=== PATIENT | female | born 1995 | race Caucasian/White ===

== ENCOUNTER → 2021-09-24 15:37 | Outpatient (CLI) | payer OTHER, SELFPAY ==
--- NOTE | 2021-09-24 15:39 | DI.US.S_ITS ---
PROCEDURE: US OB <= 14 WEEKS FETUS INDICATIONS: dating and viability OUTSIDE/PRIOR DATING DATA: Last menstrual period (LMP): 07/28/21 LMP-based estimated date of delivery (CARMENCITA): 05/04/22 First dating scan (date and location): 09/24/21 Estimated date of delivery (CARMENCITA) from first dating scan: 04/27/22 TECHNIQUE: Real-time scanning was performed of the fetus and maternal pelvic organs, with image documentation. COMPARISON: None. FINDINGS: Embryo: Intrauterine is present Heart rate: 169 beats per minute CRL 2.5cm MGSD 4.8cm Maternal organs: Ovaries within normal limits. IMPRESSION: Intrauterine at 9 weeks and 2 days by crown-rump length, within concordance limits to reported LMP. We strive to produce accurate, complete, and clear reports of imaging services. To assist us in improving patient care, this report was composed using standard report templates and voice recognition software. Therefore, it may contain abnormal punctuation, insertions and/or omissions. Occasional wrong-word or sound-alike substitutions may occur. Though we review the report and make efforts to correct it, we do recommend that the report be read carefully in proper context to recognize any text inaccuracies. Dictated by: Jonn Bailey M.D. on 09/25/2021 at 6:49 Approved by: Jonn Bailey M.D. on 09/25/2021 at 6:54
== END ==
PROVIDERS: Referring Provider Obstetrics & Gynecology; Visit Provider Obstetrics & Gynecology
DX: Z34.91 Encounter for supervision of normal pregnancy, unspecified, first trimester (principal); Z3A.09 9 weeks gestation of pregnancy
CPT/HCPCS: 76801

== ENCOUNTER → 2021-10-09 11:05 | Outpatient (CLI) | payer OTHER, SELFPAY ==
[2021-10-09 12:18] LABS: Appearance Urine UA CLEAR; Bilirubin Urine UA NEGATIVE (NEGATIVE); Color Urine UA YELLOW; Glucose Urine UA NEGATIVE (Negative); Ketones Urine UA NEGATIVE (NEGATIVE); Leukocyte Esterase Urine UA NEGATIVE (NEGATIVE); Nitrite Urine UA NEGATIVE (Negative); Occult Blood Urine UA 3+ (Negative); Protein Urine UA TRACE (Negative); Specific Gravity Urine UA 1.025 (1.000-1.035); Urobilinogen Urine UA 0.2 E.U./dL (0.2)
[2021-10-09 12:19] LABS: Add Manual Diff / Slide Review NO; Basophils Absolute Auto 0 /uL (0-100); Basophils Percent Auto 0.4 % (0-2); Eosinophils Absolute Auto 100 /uL (0-450); Eosinophils Percent Auto 1.1 % (2-4); Hematocrit 34.7 % (36-46); Hemoglobin 11.7 g/dL (12.0-16.0); Lymphocytes Absolute Auto 1700 /uL (1100-4500); Lymphocytes Percent Auto 24.4 % (25-40); Mean Corpuscular HGB Conc 33.7 % (30-36); Mean Corpuscular Hemoglobin 30.6 PG (26-34); Mean Corpuscular Volume 90.7 fL (80-100); Monocytes Absolute Auto 500 /uL (0-900); Monocytes Percent Auto 7.5 % (3-14); Neutrophils Absolute Auto 4700 /uL (1500-7000); Neutrophils Percent Auto 66.6 % (50-75); Platelet Count 210 X10^3/uL (150-400); Red Blood Cell Count 3.83 X10^6/uL (4.0-5.2); Red Cell Distribution Width 13.1 % (11.6-14.8); White Blood Cell Count 7.1 X10^3/uL (4.5-11.0)
[2021-10-09 12:30] LABS: Amorphous Sediment Urine 1+; Bacteria Urine None Seen; RBC Urine 10-30/HPF (0-5/HPF); WBC Urine None Seen (0-5/HPF)
[2021-10-10 05:20] LABS: RPR Screen Non Reactive (Non Reactive)
[2021-10-10 07:39] LABS: Varicella IgG Antibody <135 index (Immune >165)
[2021-10-10 19:32] LABS: Hepatitis B Surface Antigen NEGATIVE s/c (NEGATIVE); Rubella Antibody IgG 39.5 IU/mL (>15)
[2021-10-10 20:04] LABS: HIV 1 & 2 Ab/Ag 4th Gen Combo NEGATIVE (NEGATIVE); Hep C Virus Ab w/Reflex Quant NEGATIVE s/c (NEGATIVE)
== END ==
PROVIDERS: PCP Physician Assistant; Referring Provider Obstetrics & Gynecology; Visit Provider Obstetrics & Gynecology
DX: Z34.81 Encounter for supervision of other normal pregnancy, first trimester (principal)
CPT/HCPCS: 36415; 80055; 81003; 81015; 86787; 86803; 86850; 86900; 86901; 87086; 87389

== ENCOUNTER → 2021-11-13 13:45 | Outpatient (CLI) | payer OTHER, SELFPAY ==
[2021-11-16 21:58] LABS: AFP, Serum 33.8 ng/mL (.); Estriol, Free 0.84 ng/mL (.); Inhibin A, Dimeric 253.96 pg/mL (.); Inhibin A, MoM 1.58 (.); Maternal Ethnicity Caucasian (.); Maternal Weight 143 lbs (.); Number of Fetuses No (.); OSBR Risk 1 IN 10000 (.); Results Report (.); Test Results *Screen Negative* (.); hCG, MoM 1.66 (.); hCG, Serum 64845 mIU/mL (.)
== END ==
PROVIDERS: Referring Provider Obstetrics & Gynecology; Visit Provider Obstetrics & Gynecology
DX: Z34.02 Encounter for supervision of normal first pregnancy, second trimester (principal); Z3A.16 16 weeks gestation of pregnancy
CPT/HCPCS: 36415; 82105; 82677; 84702; 86336

== ENCOUNTER → 2021-12-10 12:08 | Outpatient (CLI) | payer OTHER, SELFPAY ==
--- NOTE | 2021-12-10 12:10 | DI.US.S_ITS ---
PROCEDURE: US OB >= 14 WEEKS FETUS INDICATIONS: 20 week anatomy scan OUTSIDE/PRIOR DATING DATA: Last menstrual period (LMP): July 28, 2021. LMP-based estimated date of delivery (CARMENCITA): May 04, 2022. First dating scan (date and location): September 24, 2021, [facility]. Estimated date of delivery (CARMENCITA) from first dating scan: April 27, 2022. TECHNIQUE: Real-time scanning was performed of the fetus, with image documentation and biometric measurements. COMPARISON: None. FINDINGS: General: A single living intrauterine gestation is present. Presentation: Variable. Placenta: Placental position is posterior , without previa. Amniotic fluid index: 8.5 cm, normal range is 5-24 cm. Single deepest vertical pocket is 3.2 cm. heart rate: 155 beats per minute. Maternal cervical canal: 3.6 cm long. Normal lower limit is 2.5 cm. biometrics: Biparietal diameter: 4.5 cm, 19 weeks, 3 days Head circumference: 16.8 cm, 19 weeks, 3 days Abdominal circumference: 15.6 cm, 20 weeks, 6 days Femur length: 3.1 cm, 19 weeks, 4 days Clinically estimated gestational age: 20 weeks, 2 days Composite gestational age from present scan: 19 weeks, 6 days Estimated weight and percentile: 333 g, 36% Anatomic survey: Neuro: Ventricles are non-dilated at less than 10 mm. Cisterna magna is normal at 3-11 mm. Cerebellum is normal in size and morphology. Nuchal skin fold: Normal at less than 6 mm between 14-21 weeks gestational age. Face: Nose and lips, facial profile are normal. Spine: Suboptimally visualized Heart: 4-chambered heart is present, with normal ventricular outflow tracts. Diaphragm: Diaphragm is intact. Stomach: Left-sided stomach is present. Kidneys: Suboptimally visualized Cord: Suboptimally visualized Bladder: Normal in size. Extremities: All 4 extremities identified. IMPRESSION: 1. Single live intrauterine gestation with a composite gestational age of 19 weeks, 6 days. The spine, kidneys, and cord insertion were suboptimally visualized given positioning. Short interval repeat study recommended. 2. No other sonographic anatomic abnormalities. Dictated by: Brittani Rogel M.D. on 12/10/2021 at 18:11 Approved by: Brittani Rogel M.D. on 12/10/2021 at 18:15
== END ==
PROVIDERS: Referring Provider Obstetrics & Gynecology; Visit Provider Obstetrics & Gynecology
DX: Z34.82 Encounter for supervision of other normal pregnancy, second trimester (principal); Z3A.19 19 weeks gestation of pregnancy
CPT/HCPCS: 76811

== ENCOUNTER → 2021-12-11 13:14 | Outpatient (CLI) | payer OTHER, SELFPAY ==
[2021-12-11 19:57] LABS: Urine N gonorrhoeae NOT DETECTED
[2021-12-11 20:47] LABS: Urine Chlamydia NOT DETECTED
== END ==
PROVIDERS: Visit Provider Obstetrics & Gynecology
DX: Z34.82 Encounter for supervision of other normal pregnancy, second trimester (principal); Z3A.23 23 weeks gestation of pregnancy
CPT/HCPCS: 87491; 87591

== ENCOUNTER → 2022-01-22 12:59 | Outpatient (CLI) | payer OTHER, SELFPAY ==
[2022-01-22 14:13] LABS: Hematocrit 31.4 % (36-46); Hemoglobin 10.9 g/dL (12.0-16.0)
[2022-01-22 14:22] LABS: GTT (PREG) 1 Hour PP 50gm Dose 92 mg/dL (76-139)
== END ==
PROVIDERS: Referring Provider Obstetrics & Gynecology; Visit Provider Obstetrics & Gynecology
DX: Z34.82 Encounter for supervision of other normal pregnancy, second trimester (principal); Z3A.26 26 weeks gestation of pregnancy
CPT/HCPCS: 36415; 82950; 85014; 85018

== ENCOUNTER → 2022-01-28 10:02 | Outpatient (CLI) | payer OTHER, SELFPAY ==
--- NOTE | 2022-01-28 10:03 | DI.US.S_ITS ---
PROCEDURE: US OB FOLLOW UP INDICATIONS: Incomplete anatomy survey on 20 wk anatomy scan OUTSIDE/PRIOR DATING DATA: Last menstrual period (LMP): 07/28/2021 LMP-based estimated date of delivery (CARMENCITA): 05/04/2022 First dating scan (date and location): 09/24/2021 Estimated date of delivery (CARMENCITA) from first dating scan: 04/27/2022 TECHNIQUE: Real-time scanning was performed of the fetus, with image documentation. Endovaginal scanning: Not performed COMPARISON: [facility], OB >= 14 WEEKS FETUS, 12/10/2021, 12:43. [facility], , OB <= 14 WEEKS FETUS, 09/24/2021, 17:09. FINDINGS: General: A single living intrauterine gestation is present. Presentation: Vertex Placenta: Placental position is posterior, without previa. Amniotic fluid index: 10.6 cm, normal range is 5-24 cm. Single deepest vertical pocket is 3.5 cm. heart rate: 126 beats per minute. Maternal cervical canal: 3.1 cm long. Normal lower limit is 2.5 cm. Clinically estimated gestational age: 26 weeks 2 days Other: Placental cord insertion appears normal. kidneys are within normal limits without pelviectasis. Lumbar spine and sacrum are within normal limits. Cervical and thoracic spine and the cord insertion not well evaluated due to positioning. IMPRESSION: 1. Single live intrauterine . 2. kidneys, lumbar and sacral spine, and placental cord insertion are within normal limits. 3. cord insertion and the cervical and thoracic spine are not well visualized due to positioning. We strive to produce accurate, complete, and clear reports of imaging services. To assist us in improving patient care, this report was composed using standard report templates and voice recognition software. Therefore, it may contain abnormal punctuation, insertions and/or omissions. Occasional wrong-word or sound-alike substitutions may occur. Though we review the report and make efforts to correct it, we do recommend that the report be read carefully in proper context to recognize any text inaccuracies. Approved by: Mario Ralph M.D. on 01/28/2022 at 16:56
== END ==
PROVIDERS: Referring Provider Obstetrics & Gynecology; Visit Provider Obstetrics & Gynecology
DX: Z36.2 Encounter for other antenatal screening follow-up (principal); Z3A.24 24 weeks gestation of pregnancy
CPT/HCPCS: 76816

== ENCOUNTER 2022-01-31 13:19 | Observation (INO) | payer OTHER, SELFPAY ==
[2022-01-31 14:47] LABS: Appearance Urine UA CLEAR; Bilirubin Urine UA NEGATIVE (NEGATIVE); Color Urine UA YELLOW; Glucose Urine UA NEGATIVE (Negative); Ketones Urine UA NEGATIVE (NEGATIVE); Leukocyte Esterase Urine UA NEGATIVE (NEGATIVE); Nitrite Urine UA NEGATIVE (Negative); Occult Blood Urine UA NEGATIVE (Negative); Protein Urine UA NEGATIVE (Negative); Urobilinogen Urine UA 0.2 E.U./dL (0.2)
[2022-01-31 14:51] LABS: pH Urine UA 6.5 (4.5-8.0)
[2022-01-31 14:56] LABS: Bacteria Urine Occasional (0-1); RBC Urine None Seen (0-5/HPF); Squamous Epithelial Cell Urine 0-1 /HPF (0-5/HPF); WBC Urine 0-1/HPF (0-5/HPF)
--- NOTE | 2022-01-31 15:47 | PM.OBTRLD ---
Visit Information Visit Information Date of evaluation: 01/31/22 Primary OB Provider: Gorge Lane Reason for Evaluation: Yes other Comments/Additional reasons for admission: 26 yo at 27+5 weeks EGA presenting with progressively severe R flank pain since her follow-up anatomy scan performed 01.28.2022. She denies contractions, bleeding, leakage of fluid PV, or change in discharge. Hurts worse with deep breath but no SOB, CHAN. Baby active. PFSH Medical History Anxiety Depression Surgical History H/O dilation and curettage Family History Mother Hypertension Gestational diabetes Father Hypertension Grandfather Colon cancer Social History marital status: number of children: 0 household members: spouse housing: [facility] pets and animals: Yes education level: high school occupational status: previously employed current occupational exposures/hazards: No special trino needs: No seatbelt use: always water heater temp set < 120 deg: No (will adjust) working smoke detector in home: Yes fire extinguisher in home: Yes carbon monox detector in home: Yes firearms in home: Yes firearms unloaded and locked: Yes do you feel safe at home: Yes Smoking Status: Former smoker (Quit when she realized she was ) Tobacco: How many years used: 4 second hand exposure: No substance use type: marijuana (not willing to stop due to appetite, sleep, depression, etc) during the past year weight has: remained stable well-balanced diet: rarely or never daily servings fruits/ve-1 caffeine: No Type(s) of exercise: walking frequency: daily duration: 15-30 minutes/day additional social history: Very inadequate diet. Reports that she eats absolutely no fruits or vegetables, won't even try or drink smoothies. I eat noodles, potatoes, and meat. I'll take a supplement if you tell me one. Counseled pt on diet, but it seems likely this will need a lot of reinforcement. Exam HENNV Head: normal to inspection, normocephalic and atraumatic Eyes General: appearance normal, both eyes and all related structures Resp Effort & Inspection: normal respiratory effort and able to speak in complete sentences Cardio Rate: regular rate Rhythm: regular rhythm GI Inspection: normal to inspection Palpation: soft and no hepatosplenomegaly Other: Tenderness R ribs 8-10, duplicates her pain Uterus Location (Fundal Height): 27 Estimated Weight (lbs): 3 Back/Spine/Pelvis Thoracic/Lumbar Spine: other Extrem Right lower extremity: normal to inspection Objective Labs Labs: Laboratory Results - last 24 hr 01/31/22 13:59 Urine Color Yellow Urine Appearance Clear Urine pH 6.5 Ur Specific [place] 1.010 Urine Protein Negative Urine Glucose (UA) Negative Urine Ketones Negative Urine Occult Blood Negative Urine Nitrate Negative Urine Bilirubin Negative Urine Urobilinogen 0.2 Ur Leukocyte Esterase Negative Urine RBC None seen Urine WBC 0-1/hpf Ur Squamous Epith Cells 0-1 /hpf Urine Bacteria Occasional (0-1) Evaluation Evaluation Baseline heart rate: 150 Variability: Moderate (11-25) monitor accelerations: Present Monitor Decelerations: Absent Status: Category l Diagnosis, Plan/Disposition Final Diagnosis (1) Slipped rib syndrome: Status: Acute (2) : Status: Acute Plan/Disposition Plan: PO analgesics, ice packs, avoid provocative activities/postures. UA negative in all respects. Follow-up as scheduled. OB Disposition: home
== END 2022-01-31 15:35 | disposition home or self-care (01) ==
PROVIDERS: Admitting Provider Obstetrics & Gynecology; Referring Provider Obstetrics & Gynecology; Visit Provider Obstetrics & Gynecology
DX: O26.892 Other specified pregnancy related conditions, second trimester (principal); M89.8X8 Other specified disorders of bone, other site; Z3A.27 27 weeks gestation of pregnancy
CPT/HCPCS: 59025; 59050; 81001; 87086; G0378; G0379

== ENCOUNTER → 2022-02-28 14:03 | Outpatient (CLI) | payer OTHER, SELFPAY ==
--- NOTE | 2022-02-28 14:04 | DI.US.S_ITS ---
PROCEDURE: US OB FOLLOW UP INDICATIONS: FOLLOW UP ANATOMY OUTSIDE/PRIOR DATING DATA: Last menstrual period (LMP): 07/28/2021. LMP-based estimated date of delivery (CARMENCITA): 05/04/2022. First dating scan (date and location): 09/14/2021. Estimated date of delivery (CARMENCITA) from first dating scan: 04/27/2022. TECHNIQUE: Real-time scanning was performed of the fetus, with image documentation. COMPARISON: , , OB FOLLOW UP, 01/28/2022, 10:15. FINDINGS: A single living intrauterine gestation is present. Presentation: Vertex Placenta: Posterior left, no previa Amniotic fluid index: 6 cm. heart rate: 126 beats per minute Maternal cervical canal: 5 cm Cervical spine appears within normal limits. Sacral spine appears within normal limits. The thoracic spine is grossly normal, but skin line is not well seen. cord insertion is grossly normal, but the surrounding structures around the cord insertion are not well seen. Mobile debris is seen in the distended maternal urinary bladder. IMPRESSION: Living intrauterine is present. Cervical and sacral spine are within normal limits. Thoracic spine is grossly normal, but the skin line is not well seen. The structures surrounding the cord insertion are also not well seen. These are due to late gestational age. MALIA 6 cm, at the lower limit of normal. Maternal distended urinary bladder with debris, correlate with urinalysis if necessary. Consider continued imaging follow-up if necessary. Dictated by: Jonn Bailey M.D. on 02/28/2022 at 16:32 Approved by: Jonn Bailey M.D. on 02/28/2022 at 16:38
== END ==
PROVIDERS: Referring Provider Obstetrics & Gynecology; Visit Provider Obstetrics & Gynecology
DX: Z36.2 Encounter for other antenatal screening follow-up (principal)
CPT/HCPCS: 76816

== ENCOUNTER → 2022-03-27 16:37 | Outpatient (CLI) | payer OTHER, SELFPAY ==
--- NOTE | 2022-03-27 16:37 | DI.US.S_ITS ---
PROCEDURE: US OB FOLLOW UP INDICATIONS: borderline oligohydramnios f/u OUTSIDE/PRIOR DATING DATA: Last menstrual period (LMP): 07/28/2021. LMP-based estimated date of delivery (CARMENCITA): 05/04/2022. First dating scan (date and location): 09/24/2021. Estimated date of delivery (CARMENCITA) from first dating scan: 04/27/2022. The calculations are made using the clinical CARMENCITA of 05/04/2022. TECHNIQUE: Real-time scanning was performed of the fetus, with image documentation. COMPARISON: [facility], , OB FOLLOW UP, 02/28/2022, 14:25. FINDINGS: General: A single living intrauterine gestation is present. Presentation: Vertex. Placenta: Placental position is posterior left, without previa. Amniotic fluid index: 7.3 cm, normal range is 5-24 cm. Single deepest vertical pocket is 4.6 cm. heart rate: 165 beats per minute. Maternal cervical canal: 3.8 cm long. Normal lower limit is 2.5 cm. Clinically estimated gestational age: 34 weeks 4 days No gross abnormality seen. IMPRESSION: 1. [place] living intrauterine at 34 weeks 4 days based on prior dating. Vertex position. 2. Normal placenta and amniotic fluid. MALIA 7.3 cm. We strive to produce accurate, complete, and clear reports of imaging services. To assist us in improving patient care, this report was composed using standard report templates and voice recognition software. Therefore, it may contain abnormal punctuation, insertions and/or omissions. Occasional wrong-word or sound-alike substitutions may occur. Though we review the report and make efforts to correct it, we do recommend that the report be read carefully in proper context to recognize any text inaccuracies. Dictated by: Ren Wilhelm M.D. on 03/28/2022 at 9:15 Approved by: Ren Wilhelm M.D. on 03/28/2022 at 9:20
== END ==
PROVIDERS: Referring Provider Obstetrics & Gynecology; Visit Provider Obstetrics & Gynecology
DX: O41.03X0 Oligohydramnios, third trimester, not applicable or unspecified; Z3A.34 34 weeks gestation of pregnancy
CPT/HCPCS: 76816

== ENCOUNTER → 2022-04-03 13:34 | Outpatient (CLI) | payer OTHER, SELFPAY ==
[2022-04-04 14:42] LABS: Strep Grp B PCR NEG for Grp B Strep
== END ==
PROVIDERS: Visit Provider Obstetrics & Gynecology
DX: Z36.85 Encounter for antenatal screening for Streptococcus B (principal)
CPT/HCPCS: 87653

== ENCOUNTER → 2022-04-09 13:48 | Outpatient (CLI) | payer OTHER, SELFPAY ==
[2022-04-09 15:42] LABS: Creatinine Urine Random 25.6 mg/dL; Protein (Total) Urine Random 13 mg/dL (0-12)
== END ==
PROVIDERS: Visit Provider Obstetrics & Gynecology
DX: R03.0 Elevated blood-pressure reading, without diagnosis of hypertension (principal)
CPT/HCPCS: 82570; 84156

== ENCOUNTER → 2022-04-09 13:53 | Outpatient (CLI) | payer OTHER, SELFPAY ==
[2022-04-09 14:12] LABS: Add Manual Diff / Slide Review NO; Basophils Absolute Auto 100 /uL (0-100); Basophils Percent Auto 1.3 % (0-2); Eosinophils Absolute Auto 100 /uL (0-450); Eosinophils Percent Auto 0.9 % (2-4); Hematocrit 37.3 % (36-46); Hemoglobin 12.7 g/dL (12.0-16.0); Lymphocytes Absolute Auto 2000 /uL (1100-4500); Lymphocytes Percent Auto 21.3 % (25-40); Mean Corpuscular HGB Conc 34.2 % (30-36); Mean Corpuscular Hemoglobin 32.1 PG (26-34); Mean Corpuscular Volume 93.8 fL (80-100); Monocytes Absolute Auto 800 /uL (0-900); Monocytes Percent Auto 8.4 % (3-14); Neutrophils Absolute Auto 6400 /uL (1500-7000); Neutrophils Percent Auto 68.1 % (50-75); Platelet Count 214 X10^3/uL (150-400); Red Blood Cell Count 3.97 X10^6/uL (4.0-5.2); Red Cell Distribution Width 12.7 % (11.6-14.8); White Blood Cell Count 9.4 X10^3/uL (4.5-11.0)
[2022-04-09 14:22] LABS: Alanine Aminotransferase 14 IU/L (<35); Albumin 3.8 g/dL (3.5-5.0); Albumin Globulin Ratio 1.1 (1.0-2.8); Alkaline Phosphatase 122 U/L (38-126); Aspartate Aminotransferase 19 IU/L (14-36); Bilirubin Total 0.5 mg/dL (0.2-1.3); Blood Urea Nitrogen 9 mg/dL (7-17); Calcium 9.6 mg/dL (8.4-10.2); Carbon Dioxide 23 mmol/L (22-32); Chloride 105 mmol/L (98-107); Estimated Glomerular Filt Rate > 60 mL/min (>60); Globulin 3.5 g/dL (1.7-4.1); Glucose 81 mg/dL (70-100); HEMOLYSIS < 15 (0-50); Potassium 4.5 mmol/L (3.4-5.1); Sodium 134 mmol/L (137-145); Total Protein 7.3 g/dL (6.3-8.2)
[2022-04-09 16:55] LABS: Uric Acid 3.8 mg/dL (2.5-6.2)
== END ==
PROVIDERS: Referring Provider Obstetrics & Gynecology; Visit Provider Obstetrics & Gynecology
DX: R03.0 Elevated blood-pressure reading, without diagnosis of hypertension (principal)
CPT/HCPCS: 36415; 80053; 84550; 85025

== ENCOUNTER 2022-04-09 14:02 | Observation (INO) | payer OTHER, SELFPAY ==
--- NOTE | 2022-04-09 16:22 | PM.OBTRLD ---
Visit Information Visit Information Date of evaluation: 04/09/22 Primary OB Provider: Gorge Lane Reason for Evaluation: Yes non-stress test Comments/Additional reasons for admission: Gloria presents for BP monitoring and NST due to BP elevation in-office today. [facility] Medical History Anxiety Depression Surgical History H/O dilation and curettage Family History Mother Hypertension Gestational diabetes Father Hypertension Grandfather Colon cancer Social History marital status: number of children: 0 household members: spouse housing: [facility] pets and animals: Yes education level: high school occupational status: previously employed current occupational exposures/hazards: No special trino needs: No seatbelt use: always water heater temp set < 120 deg: No (will adjust) working smoke detector in home: Yes fire extinguisher in home: Yes carbon monox detector in home: Yes firearms in home: Yes firearms unloaded and locked: Yes do you feel safe at home: Yes Smoking Status: Former smoker (Quit when she realized she was ) Tobacco: How many years used: 4 second hand exposure: No substance use type: marijuana (not willing to stop due to appetite, sleep, depression, etc) during the past year weight has: remained stable well-balanced diet: rarely or never daily servings fruits/ve-1 caffeine: No Type(s) of exercise: walking frequency: daily duration: 15-30 minutes/day additional social history: Very inadequate diet. Reports that she eats absolutely no fruits or vegetables, won't even try or drink smoothies. I eat noodles, potatoes, and meat. I'll take a supplement if you tell me one. Counseled pt on diet, but it seems likely this will need a lot of reinforcement.
[2022-04-09 16:32] VITALS: BP 140/90; PULSE 82
[2022-04-09] MEDS: LABETALOL 100 MG TABLET 200 MG PO (16:32)
== END 2022-04-09 16:33 | disposition home or self-care (01) ==
PROVIDERS: Admitting Provider Obstetrics & Gynecology; Referring Provider Obstetrics & Gynecology; Visit Provider Obstetrics & Gynecology
DX: O16.3 Unspecified maternal hypertension, third trimester (principal); Z3A.37 37 weeks gestation of pregnancy; R03.0 Elevated blood-pressure reading, without diagnosis of hypertension
CPT/HCPCS: 36415; 59025; 59050; 80053; 82570; 84156; 84550; 85025; G0378; G0379

== ENCOUNTER 2022-04-10 21:43 | Outpatient (CLI) | payer OTHER, SELFPAY | END 2022-04-10 22:37 | disposition home or self-care (01) | LOC: LABOR 21:48 → OB 04-18 17:06 | PROVIDERS: Referring Provider Obstetrics & Gynecology; Visit Provider Obstetrics & Gynecology | DX: Z03.71 Encounter for suspected problem with amniotic cavity and membrane ruled out (principal); O13.3 Gestational [pregnancy-induced] hypertension without significant proteinuria, third trimester; Z3A.37 37 weeks gestation of pregnancy | CPT/HCPCS: 59025; 84112; G0378; G0379 ==

== ENCOUNTER 2022-04-16 19:12 | Inpatient (IN) | payer OTHER, SELFPAY ==
[2022-04-16 19:45] VITALS: BP 134/78
[2022-04-16 20:17] LABS: Add Manual Diff / Slide Review NO; Basophils Absolute Auto 100 /uL (0-100); Basophils Percent Auto 1.2 % (0-2); Eosinophils Absolute Auto 100 /uL (0-450); Eosinophils Percent Auto 0.8 % (2-4); Hematocrit 36.6 % (36-46); Hemoglobin 12.1 g/dL (12.0-16.0); Lymphocytes Absolute Auto 2100 /uL (1100-4500); Lymphocytes Percent Auto 18.6 % (25-40); Mean Corpuscular HGB Conc 33.2 % (30-36); Mean Corpuscular Hemoglobin 31.8 PG (26-34); Mean Corpuscular Volume 95.9 fL (80-100); Monocytes Absolute Auto 800 /uL (0-900); Neutrophils Absolute Auto 8100 /uL (1500-7000); Neutrophils Percent Auto 72.4 % (50-75); Platelet Count 238 X10^3/uL (150-400); Red Blood Cell Count 3.81 X10^6/uL (4.0-5.2); Red Cell Distribution Width 13.3 % (11.6-14.8); White Blood Cell Count 11.2 X10^3/uL (4.5-11.0)
[2022-04-16] MEDS: miSOPROStoL 100 MCG TABLET 50 MCG PO (20:36)
[2022-04-16 21:25] LABS: Alanine Aminotransferase 17 IU/L (<35); Albumin 3.3 g/dL (3.5-5.0); Alkaline Phosphatase 123 U/L (38-126); Aspartate Aminotransferase 21 IU/L (14-36); BUN Creatinine Ratio 17.2 (6-22); Bilirubin Total 0.4 mg/dL (0.2-1.3); Blood Urea Nitrogen 11 mg/dL (7-17); Calcium 9.4 mg/dL (8.4-10.2); Carbon Dioxide 23 mmol/L (22-32); Chloride 104 mmol/L (98-107); Estimated Glomerular Filt Rate > 60 mL/min (>60); Globulin 3.2 g/dL (1.7-4.1); Glucose 106 mg/dL (70-100); HEMOLYSIS < 15 (0-50); Potassium 3.6 mmol/L (3.4-5.1); Sodium 135 mmol/L (137-145); Total Protein 6.5 g/dL (6.3-8.2); Uric Acid 4.3 mg/dL (2.5-6.2)
[2022-04-16 21:56] LABS: Creatinine Urine Random 124.5 mg/dL; Protein (Total) Urine Random 12 mg/dL (0-12); Protein Creatinine Ratio Urine 0.09 GRAM/24H
[2022-04-16] MEDS: LABETALOL 100 MG TABLET 200 MG PO (23:34)
[2022-04-17] MEDS: miSOPROStoL 100 MCG TABLET 50 MCG PO (02:39)
--- NOTE | 2022-04-17 07:37 | PM.OBHP.1 ---
OB HPI Date/Time Date of admission: 04/16/22 Date Patient Seen: 04/17/22 Time Patient Seen: 07:37 History of Present Condition Chief complaint: IUP, 38+4 wks EGA, gestational hypertension : 2 Para: 0 Estimated Date of Delivery: 04/27/22 Estimated Gestational Age (weeks): 38+3 Narrative: Gloria Seay is a 26 year old admitted at 38+3 weeks EGA for ripening/induction due to gestational HTN requiring labetalol 200 mg PO BID for BP control. PIH/PEC labs have been negative aside from elevated protein to creatinine ratios but dip urinalysis is negative for protein. course is largely been uneventful with solid dating and appropriate milestones throughout. GBS is negative. Indications Indication for induction OB: gestational HTN/pre-eclampsia History of Present care: good care Dating criteria: LMP confirmed by 1st trimester US Ultrasounds: normal 1st trimester US and normal mid trimester US Obstetrical complications: gestational hypertension Medical complications: none Preadmission Labs Blood type: A (+) positive -: Antibody screen: negative, GBS status: negative, HBsAG: negative, HIV: negative and RPR/VDLR: negative -: Chlamydia screen: not detected and Gonorrhea screen: not detected -: Rubella: immune and Varicella: not immune HCT: 37.3 HCAB: negative PAP: Normal Quad screen: Normal 1 hr GTT: 92 Prior (ies) History: SAB x 1 Evaluation Evaluation Baseline heart rate: 135 Variability: Moderate (11-25) monitor accelerations: Present Monitor Decelerations: Absent Contraction Frequency (minutes): 6 Uterine Contraction Intensity: Moderate Category of Tracing: Reactive Status: Category l Dilation (cm): 1 Effacement (%): 85 Dilation: Closed Effacement: >/=80% station: -1 Position of cervix: mid Consistency: soft Ferguson score: 8 PFSH Medical History Anxiety Depression Surgical History H/O dilation and curettage Family History Mother Hypertension Gestational diabetes Father Hypertension Grandfather Colon cancer Social History marital status: number of children: 0 household members: spouse housing: [facility] pets and animals: Yes education level: high school occupational status: previously employed current occupational exposures/hazards: No special trino needs: No seatbelt use: always water heater temp set < 120 deg: No (will adjust) working smoke detector in home: Yes fire extinguisher in home: Yes carbon monox detector in home: Yes firearms in home: Yes firearms unloaded and locked: Yes do you feel safe at home: Yes Smoking Status: Former smoker Tobacco: How many years used: 4 second hand exposure: No substance use type: marijuana (not willing to stop due to appetite, sleep, depression, etc) during the past year weight has: remained stable well-balanced diet: rarely or never daily servings fruits/ve-1 caffeine: No Type(s) of exercise: walking frequency: daily duration: 15-30 minutes/day additional social history: Very inadequate diet. Reports that she eats absolutely no fruits or vegetables, won't even try or drink smoothies. I eat noodles, potatoes, and meat. I'll take a supplement if you tell me one. Counseled pt on diet, but it seems likely this will need a lot of reinforcement. Meds Home Medications and Allergies Home Medications Medication Instructions Recorded Confirmed Type doxylamine succinate 25 mg tablet 25 mg PO BEDTIME PRN insomia 09/26/21 04/16/22 History prenat.vits,tameka,clh-osfa-czhmo 1 tab PO DAILY 09/26/21 04/16/22 History buspirone 15 mg tablet 15 mg PO BID #60 tabs 10/09/21 04/16/22 Rx double electric breast pump 1 ea topical .prn #1 ea 03/21/22 04/16/22 Rx labetalol 200 mg tablet See Rx Instructions .Route 04/09/22 04/16/22 Rx .COMPLEX #180 tabs Allergies Allergy/AdvReac Type Severity Reaction Status Date / Time latex Allergy Verified 04/16/22 19:49 Review of Systems Review of Systems Narrative: Problem-specific ROS positives included in HPI OB Exam Vital signs Blood Pressure: 126/70 Pulse Rate: 69 Respiratory Rate: 16 Temperature: 95.7 F HENMT Head: normal to inspection, normocephalic and atraumatic Eyes General: appearance normal, both eyes and all related structures Resp Effort & Inspection: normal respiratory effort and able to speak in complete sentences Auscultation: clear to auscultation bilaterally Cardio Rate: regular rate Rhythm: regular rhythm Heart Sounds: S1 normal, S2 normal and no murmurs Extremities Lower extremity: Yes normal to inspection GI Inspection: normal to inspection Palpation: Yes soft and Yes no hepatosplenomegaly Uterus Location (Fundal Height): 38 Presentation: vertex Estimated Weight (lbs): 8 Objective Labs 04/16/22 20:00 04/16/22 20:30 Labs: Laboratory Results - last 24 hr 04/16/22 04/16/22 04/16/22 20:00 20:00 20:30 WBC 11.2 H RBC 3.81 L Hgb 12.1 Hct 36.6 MCV 95.9 MCH 31.8 MCHC 33.2 RDW 13.3 Plt Count 238 Neut % (Auto) 72.4 Lymph % (Auto) 18.6 L Price % (Auto) 7.0 Eos % (Auto) 0.8 L Baso % (Auto) 1.2 Neut # (Auto) 8100 H Lymph # (Auto) 2100 Price # (Auto) 800 Eos # (Auto) 100 Baso # (Auto) 100 Sodium 135 L Potassium 3.6 Chloride 104 Carbon Dioxide 23 BUN 11 Creatinine 0.64 Estimated GFR > 60 BUN/Creatinine Ratio 17.2 Glucose 106 H Uric Acid 4.3 Calcium 9.4 Total Bilirubin 0.4 AST 21 ALT 17 Alkaline Phosphatase 123 Total Protein 6.5 Albumin 3.3 L Globulin 3.2 Albumin/Globulin Ratio 1.0 U Random Total Protein Urine Creatinine Protein/Creatinin Ratio Blood Type A Positive Antibody Screen Negative 04/16/22 21:00 WBC RBC Hgb Hct MCV MCH MCHC RDW Plt Count Neut % (Auto) Lymph % (Auto) Price % (Auto) Eos % (Auto) Baso % (Auto) Neut # (Auto) Lymph # (Auto) Price # (Auto) Eos # (Auto) Baso # (Auto) Sodium Potassium Chloride Carbon Dioxide BUN Creatinine Estimated GFR BUN/Creatinine Ratio Glucose Uric Acid Calcium Total Bilirubin AST ALT Alkaline Phosphatase Total Protein Albumin Globulin Albumin/Globulin Ratio U Random Total Protein 12 Urine Creatinine 124.5 Protein/Creatinin Ratio 0.09 Blood Type Antibody Screen Assessment and Plan Assessment and Plan Assessment and Plan narrative: ASSESSMENT 1. Intrauterine , 38+ 3 weeks gestational age 2. Gestational hypertension, treated with oral labetalol 3. GBS negative status PLAN 1. Admit for ripening and induction 2. See admission orders
[2022-04-17 08:29] VITALS: BP 126/70; PULSE 69; RESP 16; TEMP 35.4
[2022-04-17 08:57] VITALS: BP 129/82; PULSE 77
[2022-04-17] MEDS: LABETALOL 100 MG TABLET 200 MG PO ×2 (08:57→23:07)
[2022-04-17] MEDS: LACTATED RINGERS 1,000 ML 100 ML IV ×2 (08:57→18:44)
[2022-04-17] MEDS: OXYTOCIN PREMIX 30 UNIT/500 ML PLAST..BAG IV (09:21)
--- NOTE | 2022-04-17 14:07 | PM.OBPNLAB ---
Date/Time Date Patient Seen: 04/17/22 Time Patient Seen: 12:00 Pain Control Pain control: tolerating well Pelvic Exam Dilation (cm): 1 Effacement (%): 90 station: -2 Amniotic membrane status: Intact Contractions Contractions on admission: none Monitor mode: External Pitocin rate (mU/min): 10 Contraction frequency (min): 3 Contraction duration (min): 1 Contraction pattern: Regular Contraction phase: Resting Contraction intensity: Strong/Firm Status status: Category l Heart Rate Baseline: 145 Monitor Accelerations: Present Monitor Decelerations: Absent Monitor Variability: Moderate Assessment and Plan Assessment: induction ongoing Plan: continuous present management Comments: Little change noted overnight with oral Cytotec. Pitocin augmentation initiated after breakfast currently well tolerated. OK for UMAIR as desired.
[2022-04-17 18:45] VITALS: BP 122/69; PULSE 70
[2022-04-17] MEDS: FENT 2MCG/ML BUPIV 0.125% EPI 200 MCG/100 ML PLAST..BAG 8 MCG EPIDURAL (19:47)
[2022-04-17 23:07] VITALS: BP 125/67; PULSE 82
[2022-04-17 23:46] VITALS: BP 118/68; PULSE 75
[2022-04-18] MEDS: FENT 2MCG/ML BUPIV 0.125% EPI 200 MCG/100 ML PLAST..BAG 8 MCG EPIDURAL (02:31)
[2022-04-18] MEDS: LACTATED RINGERS 1,000 ML 100 ML IV (04:45)
--- NOTE | 2022-04-18 08:46 | PM.OBPRVD ---
Events: Induced HTN Labor & Delivery Delivery date: 04/18/22 Intrapartal Events: None Cervical ripening method: per misoprostal protocol Induction method: per pitocin protocol Delivery augmentation: pitocin Delivery monitor: external FHT and external uterine Route of delivery: Episiotomy description: None L&D Laceration Description: Perineal - 2nd Degree and Labial (2nd degree bilateral) Delivery repair: chromic Estimated blood loss (mL): 250 Anesthesia Type: Epidural Complications: None Narrative: Following a 33 minute 2nd stage, the patient delivered over in intact perineum a vigorous, viable female infant. No shoulder dystocia or cord entanglement was encountered. Skin to skin contact was initiated immediately and delayed cord clamping performed. Once the umbilical cord was doubly clamped and cut, a cord blood sample was obtained for routine studies. The placenta was delivered easily with gentle cord traction and suprapubic countertraction. Placenta was examined, found to be intact with a central cord insertion, and the umbilical cord was noted to have 3 vessels. Intravenous Pitocin was initiated immediately to good effect with prompt decrease in bleeding. Inspection of the perineum showed labial lacerations on both sides and a midline perineal laceration. The labial lacerations were closed with 3-0 chromic using running interlocking stitches and the perineal laceration was closed with 2-0 chromic in the usual manner. Mother and baby tolerated the delivery process well and no complications were experienced. Baby 1: gender: Female Presentation: vertex Position: Right Occiput Anterior Placenta delivery description: Spontaneous Cord Vessel Description: 3 Vessels score (1 min): 9 score (5 min): 9 weight: 6 lb 4.354 oz Plan for aftercare: Routine care
[2022-04-18] MEDS: LABETALOL 100 MG TABLET 200 MG PO ×2 (10:05→21:08)
[2022-04-18] MEDS: ACETAMINOPHEN 325 MG TABLET 650 MG PO ×3 (10:06→22:43)
[2022-04-18] MEDS: IBUPROFEN 600 MG TABLET PO ×3 (10:07→22:44)
[2022-04-18 21:08] VITALS: BP 131/80; PULSE 86
[2022-04-18] MEDS: BUSPIRONE 5 MG TABLET 15 MG PO (21:11)
[2022-04-18] MEDS: OXYCODONE IR 5 MG TABLET PO (22:43)
[2022-04-19] MEDS: OXYCODONE IR 5 MG TABLET PO ×2 (04:58→09:25)
[2022-04-19] MEDS: ACETAMINOPHEN 325 MG TABLET 650 MG PO ×2 (04:58→11:01)
[2022-04-19] MEDS: IBUPROFEN 600 MG TABLET PO ×2 (04:59→11:01)
[2022-04-19 06:13] LABS: Add Manual Diff / Slide Review NO; Basophils Absolute Auto 0 /uL (0-100); Basophils Percent Auto 0.3 % (0-2); Eosinophils Absolute Auto 100 /uL (0-450); Eosinophils Percent Auto 0.5 % (2-4); Hematocrit 29.7 % (36-46); Lymphocytes Absolute Auto 1800 /uL (1100-4500); Lymphocytes Percent Auto 15.2 % (25-40); Mean Corpuscular HGB Conc 33.8 % (30-36); Mean Corpuscular Hemoglobin 32.1 PG (26-34); Mean Corpuscular Volume 94.8 fL (80-100); Monocytes Absolute Auto 900 /uL (0-900); Monocytes Percent Auto 7.8 % (3-14); Neutrophils Absolute Auto 8900 /uL (1500-7000); Neutrophils Percent Auto 76.2 % (50-75); Platelet Count 199 X10^3/uL (150-400); Red Blood Cell Count 3.13 X10^6/uL (4.0-5.2); Red Cell Distribution Width 12.7 % (11.6-14.8); White Blood Cell Count 11.7 X10^3/uL (4.5-11.0)
[2022-04-19 09:25] VITALS: BP 121/77; PULSE 75
[2022-04-19] MEDS: LABETALOL 100 MG TABLET 200 MG PO (09:25)
[2022-04-19 10:45] VITALS: BP 121/77; PULSE 75; RESP 16; TEMP 36.6
--- NOTE | 2022-04-19 10:58 | P.DS_ITS ---
Discharge Providers Provider Date of admission: 04/16/22 19:12 Discharge Date: 04/19/22 Primary care physician: Sarah WALTERS Provider Consults: 04/19/22 08:43 Consult to Hydraulic Repairer Routine Comment: Discharge provider: Gorge Lane MD Summary Hospital Course Date Patient Seen: 04/19/22 Time Patient Seen: 10:59 Diagnoses: Intrauterine gestation, 38+ 5 weeks gestational age, delivered by spontaneous vaginal Gestational hypertension Hospital Course: Gloria was admitted for cervical ripening on the evening of 04/16/2022 with oral Cytotec. On the morning of 04/17/2022, Pitocin induction was initiated and early on the morning of 04/18/2022 delivered spontaneously a viable female with a weight of 2845 g (6 lb 4.4 oz), and Apgars of 9/9. Following delivery both mother and baby have done extremely well with the mother ambulating independently, tolerating a regular diet, and her pain is well relieved with oral pain medications. Patient will be discharged at this time to home after counseling regarding precautionary symptoms, limitations of activity, medications, and plans for follow-up which will be in 6 weeks. Medications at discharge will include resumption of all medications she was taking prior to admission, as well as oxycodone 5 mg p.o. q.6 hours as needed pain, dispense 10, and ibuprofen 600 mg p.o. q.6 hours as needed pain dispense 30. Patient will also continue her labetalol 200 mg p.o. b.i.d. until she is seen back for her 6 week visit. Peripartum Data Infant Delivery Method: Natural Vaginal Laceration Description: Perineal - 2nd Degree and Labial (Bilateral) Episiotomy description: None complications: none [place] 1: Gender: Female Disposition of : home Discharge Diagnosis (1) Gestational hypertension affecting first : Status: Acute (2) Vaginal delivery: Status: Acute Status at Discharge Cognitive/behavioral status at discharge: oriented Functional status at discharge: independent ambulation Overall status at discharge: patient is progressing back to baseline Time Spent with Patient Time attestation: Total time spent providing and/or coordinating discharge services: Time spent: Less than 30 minutes Objective Labs 04/19/22 05:50 04/16/22 20:30 Labs: Laboratory Results - last 24 hr 04/19/22 05:50 WBC 11.7 H RBC 3.13 L Hgb 10.0 L Hct 29.7 L MCV 94.8 MCH 32.1 MCHC 33.8 RDW 12.7 Plt Count 199 Neut % (Auto) 76.2 H Lymph % (Auto) 15.2 L [place] % (Auto) 7.8 Eos % (Auto) 0.5 L Baso % (Auto) 0.3 Neut # (Auto) 8900 H Lymph # (Auto) 1800 [place] # (Auto) 900 Eos # (Auto) 100 Baso # (Auto) 0 Exam Vital Signs (past 8 hours): - 04/19/22 09:25 04/19/22 10:45 Temperature 97.8 F Pulse Rate 75 75 Respiratory Rate 16 Blood Pressure 121/77 121/77 Const General: cooperative and comfortable Nutritional Appearance: average body habitus Orientation: alert and oriented x3 HENMT Head: normal to inspection, atraumatic and abrasion Ears: hearing grossly normal bilaterally Face and sinus: face symmetric Eyes General: appearance normal, both eyes and all related structures Conjunctivae: conjunctivae normal Sclera: sclerae normal EOM: EOM intact bilaterally Neck Neck: normal visual inspection Resp Effort & Inspection: normal respiratory effort and able to speak in complete sentences Auscultation: clear to auscultation bilaterally Cardio Rate: regular rate Rhythm: regular rhythm Heart Sounds: S1 normal, S2 normal and no murmurs GI Inspection: normal to inspection Palpation: soft, no hepatosplenomegaly and mass (Firm, minimally tender fundus, U -4) External Female Exam: other (No significant bleeding noted, perineum intact) Extrem General: no calf tenderness Psych Appearance: grossly normal Mental Status: mental status grossly normal Speech and Movement: speech and movement normal Mood: congruent mood Affect: normal affect Attitude: cooperative Thought Process: normal Thought Content: normal Judgment: judgment good Discharge Plan Discharge Plan Patient Disposition: Home Provider Discharge Comment: Please review the written instructions you received when you were discharged from the hospital. Your follow-up appointment should be scheduled for 6 weeks after delivery and I look forward to seeing you then. If however you have any questions, concerns, or problems in the meanwhile, please contact me either through the office phone at [phone], or via the patient portal. Discharge orders & Medications Prescriptions: New ibuprofen 600 mg Tablet 600 mg PO Q6HR PRN (Reason: Pain, Mild (1-3)) Qty: 30 2RF oxycodone 5 mg Tablet 5 mg PO Q4HR PRN (Reason: Pain, Moderate (4-6)) Qty: 12 0RF Continued double electric breast pump 1 ea topical .prn Qty: 1 0RF Rx Instructions: With supplies labetalol 200 mg tablet See Rx Instructions .ROUTE .COMPLEX Qty: 180 0RF Dose Instruction: TAKE 1 TABLET BY MOUTH TWICE DAILY Rx Instructions: TAKE 1 TABLET BY MOUTH TWICE DAILY buspirone 15 mg tablet 15 mg PO BID Qty: 60 12RF prenat.vits,tameka,gjy-djjt-vhzhe Tablet 1 tab PO DAILY doxylamine succinate 25 mg tablet 25 mg PO BEDTIME PRN (Reason: insomia) Follow up/Referrals: ProviderSarah [Primary Care Provider] - Gorge Lane MD [Physician] - Discharge Health Status Multidrug resistant organism: No MDRO Diet/Activity/Treatments Diet: Diet as Tolerated Activity: As tolerated Other treatments: [id number] Tylenol may be used for additional pain relief. Xasx-cqg-[id number] stool softeners and/or MiraLax may be used to prevent constipation. Skin/Wound/Dressing Care Report to your healthcare provider any signs of infection, such as:: chills, fever, increased pain, unusual drainage and unusual redness Dressing: N/A Visit Report/Discharge Packet Instructions: DI for Labor and Delivery, Vaginal , DI for and Nipple Soreness, DI for Prescription Opioid Use Stand Alone Forms: Discharge: Care Discharge Data Primary Care Provider: Sarah Sousa
[2022-04-19 11:44] VITALS: BP 121/70; PULSE 81
== END 2022-04-19 12:20 | disposition home or self-care (01) | DRG 807 ==
PROVIDERS: Admitting Provider Obstetrics & Gynecology; Referring Provider Obstetrics & Gynecology; Visit Provider Obstetrics & Gynecology
DX: O13.4 Gestational [pregnancy-induced] hypertension without significant proteinuria, complicating childbirth (principal); Z37.0 Single live birth; Z3A.38 38 weeks gestation of pregnancy; O70.1 Second degree perineal laceration during delivery
CPT/HCPCS: 36415; 59050; 59200; 59400; 80053; 82570; 84156; 84550; 85025; 86850; 86900; 86901; G0379; J2590

== ENCOUNTER 2023-04-03 20:10 | Emergency (ER) | payer OTHER, SELFPAY ==
[2023-04-03] VITALS (7 sets, daily range): BP systolic 128–144; BP diastolic 76–89; PULSE 75–83; RESP 16; TEMP 36.8; O2SAT 94–100; BMI 25.6
[2023-04-03] MEDS: SODIUM CHLORIDE 0.9% 1,000 ML 1000 ML IV (20:43)
[2023-04-03] MEDS: METOCLOPRAMIDE 10 MG/2 ML INJ IV (20:43)
--- NOTE | 2023-04-03 21:15 | ED.NAVMDI ---
HPI - Nausea/Vomiting/Diarrhea General Chief complaint: Nausea/Vomiting/Diarrhea Stated complaint: V/5 wks Time Seen by Provider: 04/03/23 20:11 Source: patient Mode of arrival: Family Vehicle History of Present Illness HPI Narrative: 27-year-old female presents for nausea and vomiting in early . States she is approximately 5-6 weeks per last menstrual . States her last home the only thing that helped her nausea and vomiting with marijuana. Previously hesitant to try Zofran but is willing to try Zofran today. Denies abdominal pain, cramping, vaginal bleeding. Related Data Previous Rx's Medication Instructions Recorded buspirone 15 mg tablet 15 mg PO BID #60 tabs 10/09/21 double electric breast pump 1 ea topical .prn #1 ea 03/21/22 ibuprofen 600 mg tablet 600 mg PO Q6HR PRN Pain, Mild 04/19/22 (1-3) #30 tabs doxylamine 10 mg-pyridoxine (vit 1 tab PO DAILY #30 tabs 04/03/23 B6) 10 mg tablet,delayed release (Diclegis) ondansetron 4 mg disintegrating 4 mg PO Q8H PRN nausea and 04/03/23 tablet vomiting #30 tabs Allergies Allergy/AdvReac Type Severity Reaction Status Date / Time latex Allergy Verified 05/28/22 11:20 Review of Systems Review of Systems Narrative: Negative except as noted above Patient History Medical History Anxiety Depression Surgical History H/O dilation and curettage Family History Mother Hypertension Gestational diabetes Father Hypertension Grandfather Colon cancer Social History marital status: number of children: 0 household members: spouse housing: condominium pets and animals: Yes education level: high school occupational status: previously employed current occupational exposures/hazards: No special trino needs: No seatbelt use: always water heater temp set < 120 deg: No (will adjust) working smoke detector in home: Yes fire extinguisher in home: Yes carbon monox detector in home: Yes firearms in home: Yes firearms unloaded and locked: Yes do you feel safe at home: Yes Smoking Status: Former smoker Tobacco: How many years used: 4 second hand exposure: No substance use type: marijuana (not willing to stop due to appetite, sleep, depression, etc) during the past year weight has: remained stable well-balanced diet: rarely or never daily servings fruits/ve-1 caffeine: No Type(s) of exercise: walking frequency: daily duration: 15-30 minutes/day additional social history: Very inadequate diet. Reports that she eats absolutely no fruits or vegetables, won't even try or drink smoothies. I eat noodles, potatoes, and meat. I'll take a supplement if you tell me one. Counseled pt on diet, but it seems likely this will need a lot of reinforcement. Smoking Status: Former smoker Exam Initial Vital Signs Initial Vital Signs: Vital Signs Temperature 98.3 F 04/03/23 20:20 Pulse Rate 78 04/03/23 20:20 Respiratory Rate 16 04/03/23 20:20 Blood Pressure 144/89 H 04/03/23 20:20 Pulse Oximetry 97 04/03/23 20:20 Oxygen Delivery Method Room Air 04/03/23 20:20 Const: Awake, alert, no acute distress, nontoxic appearing Eyes: PERRL, EOMI, conjunctiva normal ENT: Atraumatic, dentition normal, mucous membranes moist Cardiac: regular rate, regular rhythm RESP: unlabored, clear bilaterally, no wheezing GI: Atraumatic, soft, nontender, nondistended, no rebound, no guarding MSK: Atraumatic, full range of motion, pulses equal Skin: Warm, Dry, intact, no rashes Neuro: AO x3, CN II-XII grossly intact, moves all extremities Psych: affect normal, mood normal, not suicidal, not homicidal Course Orders Ordered: ED Orders 04/03/23 20:40 HCG Quantitative /Beta subunit Stat Discontinued Medications Sodium Chloride (Normal Saline 0.9%) 1,000 mls @ 1,000 mls/hr IV BOLUS ONE Stop: 04/03/23 21:23 Last Infusion: 04/03/23 21:45 Dose: Infused Documented By: Admin: 04/03/23 20:43 Dose: 1,000 mls/hr Documented By: SB Metoclopramide HCl (Metoclopramide 10 Mg/2 Ml Inj) 10 mg IV NOW ONE Stop: 04/03/23 20:25 Last Admin: 04/03/23 20:43 Dose: 10 mg Documented By: ALBERTO Ondansetron HCl (Ondansetron 4 Mg/2 Ml Inj) 4 mg IV NOW ONE Stop: 04/03/23 21:16 Last Admin: 04/03/23 21:26 Dose: 4 mg Documented By: ALBERTO Vital Signs Vital signs: Vital Signs - 8 hr 04/03/23 20:20 04/03/23 20:24 04/03/23 20:25 Temperature 98.3 F Pulse Rate 78 83 Respiratory Rate 16 Blood Pressure 144/89 H 144/89 H Pulse Oximetry 97 99 Oxygen Delivery Method Room Air Room Air 04/03/23 20:30 04/03/23 20:30 04/03/23 21:00 Temperature Pulse Rate 75 83 Respiratory Rate Blood Pressure 138/80 Pulse Oximetry 98 94 Oxygen Delivery Method Room Air Room Air 04/03/23 21:00 04/03/23 21:04 04/03/23 21:30 Temperature Pulse Rate 82 Respiratory Rate Blood Pressure 128/81 129/76 Pulse Oximetry 100 Oxygen Delivery Method Room Air MDM - Nausea/Vomiting/Diarrhea Lab Data Labs: Lab Results 04/03/23 Range/Units 20:40 HCG, Quant 29716 mIU/mL MDM Narrative Medical decision making narrative: Nausea and vomiting in early . Patient was given IV fluids as well as Reglan and Zofran. Patient is subsequently able to tolerate p.o., requesting to go home. Script for likely just and Zofran sent to pharmacy of choice. HCG quant level sent to lab. Patient states that she will follow up with her previous OBGYN for further concerns. Discharge Plan Departure Patient Disposition: Home Clinical Impression: Nausea and vomiting during Instructions: DI for Hyperemesis Gravidarum Prescriptions: New ondansetron 4 mg tablet,disintegrating 4 mg PO Q8H PRN (Reason: nausea and vomiting) Qty: 30 0RF doxylamine-pyridoxine (vit B6) [Diclegis] 10-10 mg tablet,delayed release (DR/EC) 1 tab PO DAILY Qty: 30 0RF No Action double electric breast pump 1 ea topical .prn Qty: 1 0RF Rx Instructions: With supplies buspirone 15 mg tablet 15 mg PO BID Qty: 60 12RF ibuprofen 600 mg Tablet 600 mg PO Q6HR PRN (Reason: Pain, Mild (1-3)) Qty: 30 2RF Referrals: ProviderSarah [Primary Care Provider] - Stand Alone Forms: Patient Portal/API
[2023-04-03] MEDS: ONDANSETRON 4 MG/2 ML INJ IV (21:26)
--- NOTE | 2023-04-03 22:01 | PC.NURSE ---
Pt passed PO challenge, states nausea is better and is feeling hungry.
[2023-04-03 22:07] LABS: HCG Quantitative /Beta subunit 49949 mIU/mL
== END 2023-04-03 22:16 | disposition home or self-care (01) ==
PROVIDERS: Emergency Provider Emergency Medicine
DX: O21.9 Vomiting of pregnancy, unspecified (principal); Z3A.01 Less than 8 weeks gestation of pregnancy
CPT/HCPCS: 36415; 84702; 96361; 96374; 96375; 99284; J2405; J2765

== ENCOUNTER 2023-04-04 17:41 | Emergency (ER) | payer OTHER, SELFPAY ==
[2023-04-04] VITALS (9 sets, daily range): BP systolic 137–167; BP diastolic 68–97; PULSE 84–107; RESP 16–18; TEMP 36.3; O2SAT 98–100; BMI 25.6
--- NOTE | 2023-04-04 18:15 | ED_ITS ---
HPI - Nausea/Vomiting/Diarrhea General Chief complaint: Nausea/Vomiting/Diarrhea Stated complaint: vomiting Time Seen by Provider: 04/04/23 17:44 Source: patient Mode of arrival: Ambulatory History of Present Illness HPI Narrative: Patient is a 27-year-old female presenting today with nausea vomiting. She reports that she has been vomiting since yesterday morning. She is Zofran at home she sees a couple times she still vomiting. No abdominal pain or vaginal bleeding. She has not yet established care for this . [place] 50,000. She has not yet had an ultrasound. She does report fever body aches and chills. No significant cough shortness of breath or sore throat. Related Data Previous Rx's Medication Instructions Recorded buspirone 15 mg tablet 15 mg PO BID #60 tabs 10/09/21 double electric breast pump 1 ea topical .prn #1 ea 03/21/22 ibuprofen 600 mg tablet 600 mg PO Q6HR PRN Pain, Mild 04/19/22 (1-3) #30 tabs doxylamine 10 mg-pyridoxine (vit 1 tab PO DAILY #30 tabs 04/03/23 B6) 10 mg tablet,delayed release (Diclegis) ondansetron 4 mg disintegrating 4 mg PO Q8H PRN nausea and 04/03/23 tablet vomiting #30 tabs metoclopramide HCl 10 mg tablet 10 mg PO Q6H PRN nausea and 04/04/23 (Reglan) vomiting #20 tabs Allergies Allergy/AdvReac Type Severity Reaction Status Date / Time latex Allergy Verified 05/28/22 11:20 Patient History Medical History Depression Anxiety Surgical History H/O dilation and curettage Family History Mother Hypertension Gestational diabetes Father Hypertension Grandfather Colon cancer Social History marital status: number of children: 0 household members: [facility] pets and animals: Yes education level: high school occupational status: previously employed current occupational exposures/hazards: No special trino needs: No seatbelt use: always water heater temp set < 120 deg: No (will adjust) working smoke detector in home: Yes fire extinguisher in home: Yes carbon monox detector in home: Yes firearms in home: Yes firearms unloaded and locked: Yes do you feel safe at home: Yes Smoking Status: Former smoker Tobacco: How many years used: 4 second hand exposure: No substance use type: marijuana (not willing to stop due to appetite, sleep, depression, etc) during the past year weight has: remained stable well-balanced diet: rarely or never daily servings fruits/ve-1 caffeine: No Type(s) of exercise: walking frequency: daily duration: 15-30 minutes/day additional social history: Very inadequate diet. Reports that she eats absolutely no fruits or vegetables, won't even try or drink smoothies. I eat noodles, potatoes, and meat. I'll take a supplement if you tell me one. Counseled pt on diet, but it seems likely this will need a lot of reinforcement. Smoking Status: Former smoker Exam Initial Vital Signs Initial Vital Signs: Vital Signs Temperature 97.4 F L 04/04/23 17:41 Pulse Rate 87 04/04/23 17:41 Respiratory Rate 18 04/04/23 17:41 Blood Pressure 140/97 H 04/04/23 17:41 Pulse Oximetry 98 04/04/23 17:41 Oxygen Delivery Method Room Air 04/04/23 17:41 GENERAL: Alert pleasant well-appearing 27-year-old female and in no acute distress. HEENT: Head atraumatic,EOMI, pupils reactive, face symmetric, moist mucous membranes CARDIOVASCULAR: Regular rate and rhythm without murmurs, rubs or gallops. RESPIRATORY: Breath sounds equal bilaterally, no wheezes rales or rhonchi. ABDOMEN: Soft, nontender. Normoactive bowel sounds all 4 quadrants. No guarding or rebound. : No CVA tenderness EXTREMITIES: Normal range of motion, no clubbing or edema. Neurovascularly intact NEUROLOGICAL: Alert and oriented x4.Normal gait and speech. SKIN: Warm, dry, no laceration, no petechiae, no rashes or lesions. Course Orders Ordered: ED Orders 04/04/23 18:18 Urine Microscopic Stat 04/04/23 18:22 US OB <= 14 weeks fetus Stat 04/04/23 18:23 CBC Auto Diff [Complete Blood Count AUTO DIFF] Stat CMP [Comprehensive Metabolic Panel] Stat 04/04/23 18:26 Covid-19 + FLU A/B + RSV - PCR Stat Discontinued Medications Sodium Chloride (Normal Saline 0.9%) 1,000 mls @ 1,000 mls/hr IV BOLUS ONE Stop: 04/04/23 18:53 Last Infusion: 04/04/23 20:04 Dose: Infused Documented By: Admin: 04/04/23 18:29 Dose: 1,000 mls/hr Documented By: DERRELL Sodium Chloride (Normal Saline 0.9%) 1,000 mls @ 1,000 mls/hr IV BOLUS ONE Stop: 04/04/23 20:36 Last Infusion: 04/04/23 21:03 Dose: Infused Documented By: Admin: 04/04/23 19:59 Dose: 1,000 mls/hr Documented By: FAWN Metoclopramide HCl (Metoclopramide 10 Mg/2 Ml Inj) 10 mg IV NOW ONE Stop: 04/04/23 20:10 Last Admin: 04/04/23 20:12 Dose: 10 mg Documented By: FAWN Ondansetron HCl (Ondansetron 4 Mg/2 Ml Inj) 4 mg IV NOW ONE Stop: 04/04/23 18:28 Last Admin: 04/04/23 18:30 Dose: 4 mg Documented By: DERRELL Ondansetron HCl (Ondansetron 4 Mg/2 Ml Inj) 4 mg IV NOW ONE Stop: 04/04/23 19:56 Last Admin: 04/04/23 19:59 Dose: 4 mg Documented By: FAWN Vital Signs Vital signs: Vital Signs - 8 hr 04/04/23 18:58 04/04/23 19:00 04/04/23 20:01 Pulse Rate 86 85 84 Respiratory Rate Blood Pressure Pulse Oximetry 100 100 99 Oxygen Delivery Method Room Air 04/04/23 20:03 04/04/23 20:03 04/04/23 20:30 Pulse Rate 88 Respiratory Rate Blood Pressure 137/75 137/68 Pulse Oximetry 99 Oxygen Delivery Method 04/04/23 20:30 04/04/23 21:00 04/04/23 21:00 Pulse Rate 86 86 Respiratory Rate Blood Pressure 140/78 Pulse Oximetry 100 100 Oxygen Delivery Method 04/04/23 21:30 04/04/23 21:31 04/04/23 21:31 Pulse Rate 92 H 107 H Respiratory Rate 16 Blood Pressure 167/80 H Pulse Oximetry 100 100 Oxygen Delivery Method Room Air MDM - Nausea/Vomiting/Diarrhea Lab Data 04/04/23 18:23 04/04/23 18:23 Labs: Lab Results 04/04/23 04/04/23 04/04/23 Range/Units 18:18 18:23 18:26 WBC 8.1 (4.5-11.0) X10^3/uL RBC 4.49 (4.0-5.2) X10^6/uL Hgb 13.6 (12.0-16.0) g/dL Hct 40.4 (36-46) % MCV 89.9 (80-100) fL MCH 30.3 (26-34) PG MCHC 33.7 (30-36) % RDW 12.7 (11.6-14.8) % Plt Count 245 (150-400) X10^3/uL Neut % (Auto) 77.1 H (50-75) % Lymph % (Auto) 14.3 L (25-40) % [place] % (Auto) 7.4 (3-14) % Eos % (Auto) 0.1 L (2-4) % Baso % (Auto) 1.1 (0-2) % Neut # (Auto) 6300 (3259-4585) /uL Lymph # (Auto) 1200 (2569-3369) /uL [place] # (Auto) 600 (0-900) /uL Eos # (Auto) 0 (0-450) /uL Baso # (Auto) 100 (0-100) /uL Sodium 137 (137-145) mmol/L Potassium 3.7 (3.4-5.1) mmol/L Chloride 103 (98-107) mmol/L Carbon Dioxide 18 L (22-32) mmol/L BUN 9 (7-17) mg/dL Creatinine 0.60 (0.52-1.04) mg/dL Estimated GFR > 60 (>60) mL/min BUN/Creatinine Ratio 15.0 (6-22) Glucose 83 (70-100) mg/dL Calcium 9.6 (8.4-10.2) mg/dL Total Bilirubin 1.5 H (0.2-1.3) mg/dL AST 20 (14-36) IU/L ALT 16 (<35) IU/L Alkaline Phosphatase 48 (38-126) U/L Total Protein 8.0 (6.3-8.2) g/dL Albumin 4.7 (3.5-5.0) g/dL Globulin 3.3 (1.7-4.1) g/dL Albumin/Globulin Ratio 1.4 (1.0-2.8) Urine RBC None seen (0-5/HPF) Urine WBC 0-1/hpf (0-5/HPF) Ur Squamous Epith Cells 1-5 /hpf (0-5/HPF) Urine Bacteria None seen (None) Hyaline Casts 0-1/lpf (None) Ur Culture Indicated? Cult not indicated Vol Urine Centrifuged 10ml (spun) SARS-CoV-2 (PCR) Negative (Negative) Influenza A (RT-PCR) Flu a negative (NEGATIVE) Influenza B (RT-PCR) Flu b negative (NEGATIVE) RSV (PCR) Negative (Negative) Urine Dip Bedside Urine Glucose Negative Bedside Urine Bilirubin - Negative Bedside Urine Ketone +++ 80 Urine Specific [place] 1.030 Bedside Urine Occult Blood - Negative Bedside Urine pH 6.0 Bedside Urine Protein +/- 15 Bedside Urine Urobilinogen - Negative Bedside Urine Nitrite - Negative Bedside Urine Leukocytes - Negative Esterase Imaging Data US - OB: Radiologist's Impression: PROCEDURE: US OB <= 14 WEEKS FETUS INDICATIONS: no prior US OUTSIDE/PRIOR DATING DATA: Last menstrual period (LMP): Unknown. LMP-based estimated date of delivery ([facility]): Not applicable. First dating scan (date and location): 04/04/2023. Estimated date of delivery ([facility]) from first dating scan: 11/26/2023. TECHNIQUE: Real-time scanning was performed of the fetus and maternal pelvic organs, with image documentation. Endovaginal scanning was also performed to better visualize the fetus and maternal ovaries. COMPARISON: None from this FINDINGS: Embryo: A single live intrauterine is seen. The measured heart rate is 109 beats per minute. The crown-rump length measures 0.5 cm, corresponding to an estimated gestational age of 6 weeks 2 days. It is too early for detailed anatomic assessment. By visual inspection, the amount of amniotic fluid is within normal limits. No significant findings of subchorionic/perigestational hemorrhage are seen. Maternal organs: The right ovary is within normal limits. The left ovary is not seen. IMPRESSION: A single live intrauterine is seen. No significant abnormality is seen. We strive to produce accurate, complete, and clear reports of imaging services. To assist us in improving patient care, this report was composed using standard report templates and voice recognition software. Therefore, it may contain abnormal punctuation, insertions and/or omissions. Occasional wrong-word or sound-alike substitutions may occur. Though we review the report and make efforts to correct it, we do recommend that the report be read carefully in proper context to recognize any text inaccuracies. Dictated by: John Aguillon M.D. on 04/04/2023 at 18:15 MDM Narrative Medical decision making narrative: Patient 27-year-old female presenting today with nausea vomiting. She has not had ultrasound or evaluation for this . Although she was here last night with nausea vomiting. He continues not to have any abdominal pain or vaginal bleeding. She took Zofran home without any sort Of relief. Blood work has been reviewed no leukocytosis or anemia, sodium 137 potassium 3.7, chloride 103, bicarb 18, BUN 9, creatinine 0.6, glucose 83, bilirubin 1.5, with normal AST ALT. Urinalysis does not show evidence of UTI Ultrasound does show IUP 6 weeks 2 days. Patient is able to tolerate ice chips and fluids however Reglan does work better for her than Zofran. She would like Reglan to go home with. She will call and follow-up with OB the that she has not yet established care with for this Discharge Plan Departure Patient Disposition: Home Clinical Impression: Nausea and vomiting during Instructions: Common Discomforts and Bodily Changes During Activity Restrictions/Additional Instructions: *You have been diagnosed with nausea vomiting with *What to do: At this time please follow-up with OB. Eat small amounts drink small amounts. *Continue to take medications as directed Reglan 10 mg every 6 hours if needed for nausea or vomiting *Follow up with your primary care provider in 2-3 days or call [phone] *Return to ER if you should have persistent vomiting increasing abdominal pain or any new, worsening or concerning symptoms Prescriptions: New metoclopramide HCl [Reglan] 10 mg tablet 10 mg PO Q6H PRN (Reason: nausea and vomiting) Qty: 20 0RF No Action double electric breast pump 1 ea topical .prn Qty: 1 0RF Rx Instructions: With supplies buspirone 15 mg tablet 15 mg PO BID Qty: 60 12RF ibuprofen 600 mg Tablet 600 mg PO Q6HR PRN (Reason: Pain, Mild (1-3)) Qty: 30 2RF ondansetron 4 mg tablet,disintegrating 4 mg PO Q8H PRN (Reason: nausea and vomiting) Qty: 30 0RF doxylamine-pyridoxine (vit B6) [Diclegis] 10-10 mg tablet,delayed release (DR/EC) 1 tab PO DAILY Qty: 30 0RF Referrals: ProviderSarah [Primary Care Provider] - Stand Alone Forms: Patient Portal/API
--- NOTE | 2023-04-04 18:22 | DI.US.S_ITS ---
PROCEDURE: US OB <= 14 WEEKS FETUS INDICATIONS: no prior US OUTSIDE/PRIOR DATING DATA: Last menstrual period (LMP): Unknown. LMP-based estimated date of delivery (CARMENCITA): Not applicable. First dating scan (date and location): 04/04/2023. Estimated date of delivery (CARMENCITA) from first dating scan: 11/26/2023. TECHNIQUE: Real-time scanning was performed of the fetus and maternal pelvic organs, with image documentation. Endovaginal scanning was also performed to better visualize the fetus and maternal ovaries. COMPARISON: None from this FINDINGS: Embryo: A single live intrauterine is seen. The measured heart rate is 109 beats per minute. The crown-rump length measures 0.5 cm, corresponding to an estimated gestational age of 6 weeks 2 days. It is too early for detailed anatomic assessment. By visual inspection, the amount of amniotic fluid is within normal limits. No significant findings of subchorionic/perigestational hemorrhage are seen. Maternal organs: The right ovary is within normal limits. The left ovary is not seen. IMPRESSION: A single live intrauterine is seen. No significant abnormality is seen. We strive to produce accurate, complete, and clear reports of imaging services. To assist us in improving patient care, this report was composed using standard report templates and voice recognition software. Therefore, it may contain abnormal punctuation, insertions and/or omissions. Occasional wrong-word or sound-alike substitutions may occur. Though we review the report and make efforts to correct it, we do recommend that the report be read carefully in proper context to recognize any text inaccuracies. Dictated by: John Aguillon M.D. on 04/04/2023 at 18:15 Approved by: John Aguillon M.D. on 04/04/2023 at 18:16
[2023-04-04 18:29] LABS: Bacteria Urine None Seen; Hyaline Casts Urine 0-1/LPF; RBC Urine None Seen (0-5/HPF); Squamous Epithelial Cell Urine 1-5 /HPF (0-5/HPF); Urine Volume 10mL (spun); WBC Urine 0-1/HPF (0-5/HPF)
[2023-04-04] MEDS: SODIUM CHLORIDE 0.9% 1,000 ML 1000 ML IV ×2 (18:29→19:59)
[2023-04-04 18:30] LABS: Culture Indicated Urine Cult Not Indicated
[2023-04-04] MEDS: ONDANSETRON 4 MG/2 ML INJ IV ×2 (18:30→19:59)
[2023-04-04 18:35] LABS: Add Manual Diff / Slide Review NO; Basophils Absolute Auto 100 /uL (0-100); Basophils Percent Auto 1.1 % (0-2); Eosinophils Absolute Auto 0 /uL (0-450); Eosinophils Percent Auto 0.1 % (2-4); Hematocrit 40.4 % (36-46); Hemoglobin 13.6 g/dL (12.0-16.0); Lymphocytes Absolute Auto 1200 /uL (1100-4500); Lymphocytes Percent Auto 14.3 % (25-40); Mean Corpuscular HGB Conc 33.7 % (30-36); Mean Corpuscular Hemoglobin 30.3 PG (26-34); Mean Corpuscular Volume 89.9 fL (80-100); Monocytes Absolute Auto 600 /uL (0-900); Monocytes Percent Auto 7.4 % (3-14); Neutrophils Absolute Auto 6300 /uL (1500-7000); Neutrophils Percent Auto 77.1 % (50-75); Platelet Count 245 X10^3/uL (150-400); Red Blood Cell Count 4.49 X10^6/uL (4.0-5.2); Red Cell Distribution Width 12.7 % (11.6-14.8); White Blood Cell Count 8.1 X10^3/uL (4.5-11.0)
--- NOTE | 2023-04-04 18:39 | PC.NURSE ---
PT denies any abdominal or other pains, states nausea has prolonged since yesterday after being seen here last night. Pt took zofran and then vomited this morning. She reports decreased PO intake and decreased output. Denies diarrhea. Pt reports chills and fevers at home.
[2023-04-04 18:46] LABS: Alanine Aminotransferase 16 IU/L (<35); Albumin 4.7 g/dL (3.5-5.0); Albumin Globulin Ratio 1.4 (1.0-2.8); Alkaline Phosphatase 48 U/L (38-126); Aspartate Aminotransferase 20 IU/L (14-36); Bilirubin Total 1.5 mg/dL (0.2-1.3); Blood Urea Nitrogen 9 mg/dL (7-17); Calcium 9.6 mg/dL (8.4-10.2); Carbon Dioxide 18 mmol/L (22-32); Chloride 103 mmol/L (98-107); Estimated Glomerular Filt Rate > 60 mL/min (>60); Globulin 3.3 g/dL (1.7-4.1); Glucose 83 mg/dL (70-100); HEMOLYSIS < 15 (0-50); Potassium 3.7 mmol/L (3.4-5.1); Sodium 137 mmol/L (137-145)
[2023-04-04 19:17] LABS: Influenza A - CEPHEID Flu A NEGATIVE (NEGATIVE); Influenza B - CEPHEID Flu B NEGATIVE (NEGATIVE); Respiratory Syncytial Virus Negative (Negative)
[2023-04-04 19:24] LABS: COVID-19 CEPHEID 4-PLEX PCR Negative (Negative)
[2023-04-04] MEDS: METOCLOPRAMIDE 10 MG/2 ML INJ IV (20:12)
== END 2023-04-04 21:32 | disposition home or self-care (01) ==
PROVIDERS: Emergency Provider Emergency Medicine
DX: O21.9 Vomiting of pregnancy, unspecified (principal); Z3A.01 Less than 8 weeks gestation of pregnancy
CPT/HCPCS: 0241U; 36415; 76801; 76817; 80053; 81003; 81015; 85025; 96374; 96375; 96376; 99284; J2405; J2765

== ENCOUNTER 2023-04-06 09:11 | Emergency (ER) | payer OTHER, SELFPAY ==
[2023-04-06] VITALS (12 sets, daily range): BP systolic 124–159; BP diastolic 70–89; PULSE 63–86; RESP 16–25; TEMP 36.8; O2SAT 98–100; BMI 25.2
[2023-04-06] MEDS: METOCLOPRAMIDE 10 MG/2 ML INJ IV (09:50)
[2023-04-06] MEDS: SODIUM CHLORIDE 0.9% 1,000 ML 1000 ML IV ×2 (09:50→11:53)
[2023-04-06 09:54] LABS: Add Manual Diff / Slide Review NO; Basophils Absolute Auto 0 /uL (0-100); Basophils Percent Auto 0.5 % (0-2); Eosinophils Absolute Auto 0 /uL (0-450); Eosinophils Percent Auto 0.1 % (2-4); Hemoglobin 13.6 g/dL (12.0-16.0); Lymphocytes Absolute Auto 900 /uL (1100-4500); Lymphocytes Percent Auto 9.5 % (25-40); Mean Corpuscular HGB Conc 34.1 % (30-36); Mean Corpuscular Hemoglobin 30.6 PG (26-34); Mean Corpuscular Volume 89.8 fL (80-100); Monocytes Absolute Auto 400 /uL (0-900); Monocytes Percent Auto 4.3 % (3-14); Neutrophils Absolute Auto 8100 /uL (1500-7000); Neutrophils Percent Auto 85.6 % (50-75); Platelet Count 247 X10^3/uL (150-400); Red Blood Cell Count 4.45 X10^6/uL (4.0-5.2); Red Cell Distribution Width 12.8 % (11.6-14.8); White Blood Cell Count 9.5 X10^3/uL (4.5-11.0)
--- NOTE | 2023-04-06 09:58 | PC.NURSE ---
Pt reports persistent nausea/vomiting that started last evening. Pt has been seen here twice previously the past few days and states she cant keep coming back here for her nausea and is tearful. Pt reports nausea with her first , but nothing like her current nausea. She has been taking reglan prescribed to her with last dose at 0130 today, but reports keep vomiting. She has tried other medications with no change in nausea. She has not been eating hardly anything and throws up clear liquid, sometimes bile. She denies having any pain.
[2023-04-06 10:01] LABS: Alanine Aminotransferase 14 IU/L (<35); Albumin 4.6 g/dL (3.5-5.0); Albumin Globulin Ratio 1.3 (1.0-2.8); Alkaline Phosphatase 50 U/L (38-126); Aspartate Aminotransferase 21 IU/L (14-36); BUN Creatinine Ratio 16.1 (6-22); Bilirubin Total 1.8 mg/dL (0.2-1.3); Blood Urea Nitrogen 10 mg/dL (7-17); Calcium 9.7 mg/dL (8.4-10.2); Carbon Dioxide 15 mmol/L (22-32); Chloride 106 mmol/L (98-107); Estimated Glomerular Filt Rate > 60 mL/min (>60); Globulin 3.6 g/dL (1.7-4.1); Glucose 91 mg/dL (70-100); HEMOLYSIS < 15 (0-50); Lipase 76 U/L (23-300); Potassium 3.7 mmol/L (3.4-5.1); Sodium 135 mmol/L (137-145); Total Protein 8.2 g/dL (6.3-8.2)
[2023-04-06 10:45] LABS: Bacteria Urine Moderate (10-30); Culture Indicated Urine Cult Not Indicated; Mucus Urine 1+ (Negative); RBC Urine 0-1/HPF (0-5/HPF); Squamous Epithelial Cell Urine 1-5 /HPF (0-5/HPF); Urine Volume 10mL (spun); WBC Urine 1-5/HPF (0-5/HPF)
--- NOTE | 2023-04-06 12:01 | ED_ITS ---
HPI - Nausea/Vomiting/Diarrhea General Chief complaint: Nausea/Vomiting/Diarrhea Stated complaint: can't keep anything down Time Seen by Provider: 04/06/23 09:42 Source: patient, RN notes reviewed and old records reviewed Mode of arrival: Family Vehicle Limitations: no limitations History of Present Illness HPI Narrative: 27-year-old female presenting with nausea and vomiting. Patient has had 3 visits since the 26/08. Patient states she is approximately 6 weeks and 4 days. Reports she has been vomiting pretty persistently. She tried Zofran at home with minimal improvement. Was given a prescription for Reglan on the she states it lasts about 4 hours and then wears off. She is trying to establish care for her has been waiting for referral from [facility]. Her goal is to see Dr. Lane here locally. She denies fevers or chills. No chest pain or shortness of breath, no syncope, she is nausea and vomiting that has been persistent and started really last in force. She denies any abdominal back or flank pain. Denies any dysuria, urgency or frequency. No new vaginal bleeding or discharge. No cough cold or congestive symptoms. Patient states that she did not have nausea and vomiting this significant with past . No prescription medications currently. She has been taking vitamin B6 along with doxylamine. Former smoker, no alcohol or recreational drugs. Primary care is normally at the [facility]. Related Data Previous Rx's Medication Instructions Recorded buspirone 15 mg tablet 15 mg PO BID #60 tabs 10/09/21 double electric breast pump 1 ea topical .prn #1 ea 03/21/22 ibuprofen 600 mg tablet 600 mg PO Q6HR PRN Pain, Mild 04/19/22 (1-3) #30 tabs doxylamine 10 mg-pyridoxine (vit 1 tab PO DAILY #30 tabs 04/03/23 B6) 10 mg tablet,delayed release (Diclegis) ondansetron 4 mg disintegrating 4 mg PO Q8H PRN nausea and 04/03/23 tablet vomiting #30 tabs metoclopramide HCl 10 mg tablet 10 mg PO Q6H PRN nausea and 04/04/23 (Reglan) vomiting #20 tabs metoclopramide HCl 10 mg tablet 10 mg PO Q6H PRN nausea and 04/06/23 (Reglan) vomiting #20 tabs Allergies Allergy/AdvReac Type Severity Reaction Status Date / Time latex Allergy Verified 04/06/23 09:26 Review of Systems Review of Systems ROS Unobtainable: All systems reviewed & are unremarkable except as noted in HPI and below Patient History Medical History Depression Anxiety Surgical History H/O dilation and curettage Family History Mother Hypertension Gestational diabetes Father Hypertension Grandfather Colon cancer Social History marital status: number of children: 0 household members: spouse housing: [facility] pets and animals: Yes education level: high school occupational status: previously employed current occupational exposures/hazards: No special trino needs: No seatbelt use: always water heater temp set < 120 deg: No (will adjust) working smoke detector in home: Yes fire extinguisher in home: Yes carbon monox detector in home: Yes firearms in home: Yes firearms unloaded and locked: Yes do you feel safe at home: Yes Smoking Status: Former smoker Tobacco: How many years used: 4 second hand exposure: No substance use type: marijuana (not willing to stop due to appetite, sleep, depression, etc) during the past year weight has: remained stable well-balanced diet: rarely or never daily servings fruits/ve-1 caffeine: No Type(s) of exercise: walking frequency: daily duration: 15-30 minutes/day additional social history: Very inadequate diet. Reports that she eats absolutely no fruits or vegetables, won't even try or drink smoothies. I eat noodles, potatoes, and meat. I'll take a supplement if you tell me one. Counseled pt on diet, but it seems likely this will need a lot of reinforcement. Smoking Status: Former smoker Exam Narrative Exam Narrative: GENERAL: Alert and oriented x three, well-appearing female in mild distress. HEENT: Head normocephalic, atraumatic, EOMI, pupils reactive, face symmetric, moist mucous membranes NECK: Supple, full range of motion CARDIOVASCULAR: Regular rate and rhythm without murmurs, rubs or gallops. RESPIRATORY: Breath sounds equal bilaterally, no wheezes rales or rhonchi. ABDOMEN: Soft, nontender. Nondistended. Normoactive bowel sounds all 4 quadrants. No guarding or rebound, rigidity, no mass : No CVA tenderness EXTREMITIES: Normal range of motion, no clubbing or edema. Neurovascularly intact NEUROLOGICAL: Cranial nerves II through XII grossly intact. Moving all extremities SKIN: Warm, dry, no petechiae, no rashes or lesions. Initial Vital Signs Initial Vital Signs: Vital Signs Temperature 98.3 F 04/06/23 09:24 Pulse Rate 83 04/06/23 09:24 Respiratory Rate 16 04/06/23 09:24 Blood Pressure 140/89 04/06/23 09:24 Pulse Oximetry 98 04/06/23 09:24 Oxygen Delivery Method Room Air 04/06/23 09:24 Course Orders Ordered: ED Orders 04/06/23 09:40 Complete Blood Count AUTO DIFF Stat Comprehensive Metabolic Panel Stat Lipase Stat 04/06/23 10:35 Urine Microscopic Stat 04/06/23 12:45 US abdomen limited Stat Discontinued Medications Sodium Chloride (Normal Saline 0.9%) 1,000 mls @ 1,000 mls/hr IV BOLUS ONE Stop: 04/06/23 10:41 Last Infusion: 04/06/23 11:00 Dose: Infused Documented By: Admin: 04/06/23 09:50 Dose: 1,000 mls/hr Documented By: DERRELL Sodium Chloride (Normal Saline 0.9%) 1,000 mls @ 1,000 mls/hr IV BOLUS ONE Stop: 04/06/23 12:19 Last Infusion: 04/06/23 13:20 Dose: Infused Documented By: Admin: 04/06/23 11:53 Dose: 1,000 mls/hr Documented By: JESSICA Metoclopramide HCl (Metoclopramide 10 Mg/2 Ml Inj) 10 mg IV NOW ONE Stop: 04/06/23 09:43 Last Admin: 04/06/23 09:50 Dose: 10 mg Documented By: DERRELL Vital Signs Vital signs: Vital Signs - 8 hr 04/06/23 11:00 04/06/23 11:30 04/06/23 12:00 Pulse Rate 80 80 63 Respiratory Rate 24 Blood Pressure Pulse Oximetry 98 99 99 Oxygen Delivery Method Room Air 04/06/23 12:28 04/06/23 12:28 04/06/23 12:30 Pulse Rate 86 84 Respiratory Rate 20 Blood Pressure 139/81 Pulse Oximetry 100 100 Oxygen Delivery Method Room Air 04/06/23 13:00 04/06/23 13:00 04/06/23 14:29 Pulse Rate 85 78 Respiratory Rate 23 18 Blood Pressure 124/70 159/87 H Pulse Oximetry 100 98 Oxygen Delivery Method Room Air 04/06/23 14:39 Pulse Rate Respiratory Rate Blood Pressure 148/88 H Pulse Oximetry Oxygen Delivery Method MDM - Nausea/Vomiting/Diarrhea Lab Data 04/06/23 09:40 04/06/23 09:40 Labs: Lab Results 04/06/23 04/06/23 Range/Units 09:40 10:35 WBC 9.5 (4.5-11.0) X10^3/uL RBC 4.45 (4.0-5.2) X10^6/uL Hgb 13.6 (12.0-16.0) g/dL Hct 40.0 (36-46) % MCV 89.8 (80-100) fL MCH 30.6 (26-34) PG MCHC 34.1 (30-36) % RDW 12.8 (11.6-14.8) % Plt Count 247 (150-400) X10^3/uL Neut % (Auto) 85.6 H (50-75) % Lymph % (Auto) 9.5 L (25-40) % [place] % (Auto) 4.3 (3-14) % Eos % (Auto) 0.1 L (2-4) % Baso % (Auto) 0.5 (0-2) % Neut # (Auto) 8100 H (0306-9444) /uL Lymph # (Auto) 900 L (3965-4200) /uL [place] # (Auto) 400 (0-900) /uL Eos # (Auto) 0 (0-450) /uL Baso # (Auto) 0 (0-100) /uL Sodium 135 L (137-145) mmol/L Potassium 3.7 (3.4-5.1) mmol/L Chloride 106 (98-107) mmol/L Carbon Dioxide 15 L (22-32) mmol/L BUN 10 (7-17) mg/dL Creatinine 0.62 (0.52-1.04) mg/dL Estimated GFR > 60 (>60) mL/min BUN/Creatinine Ratio 16.1 (6-22) Glucose 91 (70-100) mg/dL Calcium 9.7 (8.4-10.2) mg/dL Total Bilirubin 1.8 H (0.2-1.3) mg/dL AST 21 (14-36) IU/L ALT 14 (<35) IU/L Alkaline Phosphatase 50 (38-126) U/L Total Protein 8.2 (6.3-8.2) g/dL Albumin 4.6 (3.5-5.0) g/dL Globulin 3.6 (1.7-4.1) g/dL Albumin/Globulin Ratio 1.3 (1.0-2.8) Lipase 76 (23-300) U/L Urine RBC 0-1/hpf (0-5/HPF) Urine WBC 1-5/hpf (0-5/HPF) Ur Squamous Epith Cells 1-5 /hpf (0-5/HPF) Urine Bacteria Moderate (10-30) H (None) Urine Mucus 1+ H (Negative) Ur Culture Indicated? Cult not indicated Vol Urine Centrifuged 10ml (spun) Urine Dip Bedside Urine Glucose Negative Bedside Urine Bilirubin - Negative Bedside Urine Ketone +++ 80 Urine Specific [place] 1.030 Bedside Urine Occult Blood - Negative Bedside Urine pH 6.0 Bedside Urine Protein + 30 Bedside Urine Urobilinogen - Negative Bedside Urine Nitrite - Negative Bedside Urine Leukocytes - Negative Esterase MDM Narrative Medical decision making narrative: Patient who is currently she 6 weeks and 4 days by ultrasound with a single live intrauterine on OB ultrasound on 04/04/2023. Patient has had 3 visits for nausea vomiting, did have a COVID/influenza/RSV panel at her prior visit. Nausea and vomiting does seem to be more related to her . She states she has not had a bowel movement since Thursday but has been passing gas. She denies abdominal pain. CBC is appropriate with a white count of 9.5 hemoglobin of 13 and platelets of 247. Chemistry shows a sodium of 135 CO2 of 15 with a potassium of 3 7 normal renal function in total bilirubin of 1.8. Was 1.5 on prior visit on the was not elevated before that. HCG was 49, 949 on 04/03/2023. Ultrasound obtained secondary to elevated bilirubin, sludge but no thickening, no pericholecystic fluid, no biliary ductal dilation pancreas grossly unremarkable single intrauterine gestation with heart rate of 109 beats. Urine today shows moderate bacteria, 1+ mucus, under 5 white cells, 1-5 squamous, 0-1 RBC. Positive for ketones 30+ protein, negative nitrates and leuks. Patient feels improved. She is currently on doxylamine and B6. Discussed can continue with Reglan as she finds that more helpful than the Zofran. She was waiting on referral from [facility] to follow up with Dr. Lane. Recommend she go ahead and reach out to the office that might help facilitate follow-up faster. Discharge Plan Departure Patient Disposition: Home Clinical Impression: Nausea and vomiting during Activity Restrictions/Additional Instructions: Call Dr. Lane's office to set up follow up. Your workup showed your bilirubin slightly elevated, your gallbladder has some sludge but no other signs of infection at this time. You may continue with the doxylamine 12.5mg every 6-8 hours as needed and/or pyridoxine (B6) 10-25mg every 8 hours. Agnes is also sometimes helpful. Continue with Reglan every 6 hours as needed for nausea and vomiting. Prescription was sent to [facility] in [place]. Please return for fevers, rapidly worsening symptoms, lightheadedness or passing out, new abdominal back or flank pain, black or bloody stools, new vaginal bleeding or other new or concerning changes. Prescriptions: New metoclopramide HCl [Reglan] 10 mg tablet 10 mg PO Q6H PRN (Reason: nausea and vomiting) Qty: 20 0RF No Action double electric breast pump 1 ea topical .prn Qty: 1 0RF Rx Instructions: With supplies buspirone 15 mg tablet 15 mg PO BID Qty: 60 12RF ibuprofen 600 mg Tablet 600 mg PO Q6HR PRN (Reason: Pain, Mild (1-3)) Qty: 30 2RF ondansetron 4 mg tablet,disintegrating 4 mg PO Q8H PRN (Reason: nausea and vomiting) Qty: 30 0RF doxylamine-pyridoxine (vit B6) [Diclegis] 10-10 mg tablet,delayed release (DR/EC) 1 tab PO DAILY Qty: 30 0RF metoclopramide HCl [Reglan] 10 mg tablet 10 mg PO Q6H PRN (Reason: nausea and vomiting) Qty: 20 0RF Referrals: ProviderSarah [Primary Care Provider] - Stand Alone Forms: Patient Portal/API
--- NOTE | 2023-04-06 12:45 | DI.US.S_ITS ---
PROCEDURE: US ABDOMEN LIMITED INDICATIONS: RUQ PAIN, N/V; ELEVATED BILIRUBIN TECHNIQUE: Real-time focused scanning was performed of the abdomen, with image documentation. COMPARISON: None. FINDINGS: Liver is within normal limits. Gallbladder sludge is present without wall thickening. No pericholecystic fluid. No biliary ductal dilatation. Pancreas is grossly unremarkable. Single living intrauterine gestation with a heart rate of 109 beats per minute. IMPRESSION: 1. Single living intrauterine gestation. 2. Gallbladder sludge. 3. No acute process. Dictated by: Johnson Carter M.D. on 04/06/2023 at 13:41 Approved by: Johnson Carter M.D. on 04/06/2023 at 13:43
== END 2023-04-06 14:39 | disposition home or self-care (01) ==
PROVIDERS: Emergency Provider Emergency Medicine
DX: O21.9 Vomiting of pregnancy, unspecified (principal); Z3A.01 Less than 8 weeks gestation of pregnancy
CPT/HCPCS: 36415; 76705; 80053; 81003; 81015; 83690; 85025; 96361; 96374; 99284; J2765

== ENCOUNTER 2023-04-08 09:56 | Emergency (ER) | payer OTHER, SELFPAY ==
[2023-04-08] VITALS (8 sets, daily range): BP systolic 126–157; BP diastolic 78–92; PULSE 72–88; RESP 14–16; TEMP 36.7; O2SAT 96–99; BMI 24.7
[2023-04-08 10:26] LABS: Add Manual Diff / Slide Review NO; Basophils Absolute Auto 0 /uL (0-100); Basophils Percent Auto 0.3 % (0-2); Eosinophils Absolute Auto 0 /uL (0-450); Eosinophils Percent Auto 0.2 % (2-4); Hematocrit 40.3 % (36-46); Hemoglobin 13.8 g/dL (12.0-16.0); Lymphocytes Absolute Auto 1100 /uL (1100-4500); Lymphocytes Percent Auto 12.2 % (25-40); Mean Corpuscular HGB Conc 34.2 % (30-36); Mean Corpuscular Volume 87.7 fL (80-100); Monocytes Absolute Auto 700 /uL (0-900); Monocytes Percent Auto 7.9 % (3-14); Neutrophils Absolute Auto 7000 /uL (1500-7000); Neutrophils Percent Auto 79.4 % (50-75); Platelet Count 274 X10^3/uL (150-400); Red Cell Distribution Width 12.7 % (11.6-14.8); White Blood Cell Count 8.9 X10^3/uL (4.5-11.0)
[2023-04-08] MEDS: METOCLOPRAMIDE 10 MG/2 ML INJ IV (10:30)
[2023-04-08] MEDS: SODIUM CHLORIDE 0.9% 1,000 ML 1000 ML IV ×2 (10:30→12:11)
[2023-04-08 10:31] LABS: Alanine Aminotransferase 16 IU/L (<35); Albumin 4.6 g/dL (3.5-5.0); Albumin Globulin Ratio 1.4 (1.0-2.8); Alkaline Phosphatase 51 U/L (38-126); Aspartate Aminotransferase 22 IU/L (14-36); BUN Creatinine Ratio 12.3 (6-22); Bilirubin Total 1.7 mg/dL (0.2-1.3); Blood Urea Nitrogen 7 mg/dL (7-17); Calcium 9.7 mg/dL (8.4-10.2); Carbon Dioxide 20 mmol/L (22-32); Chloride 103 mmol/L (98-107); Estimated Glomerular Filt Rate > 60 mL/min (>60); Globulin 3.4 g/dL (1.7-4.1); Glucose 102 mg/dL (70-100); HEMOLYSIS < 15 (0-50); Lipase 104 U/L (23-300); Potassium 3.3 mmol/L (3.4-5.1); Sodium 136 mmol/L (137-145)
--- NOTE | 2023-04-08 10:47 | PC.NURSE ---
Nauseated and vomitting at home. none in Er so far.
--- NOTE | 2023-04-08 11:21 | ED.NAVMDI ---
HPI - Nausea/Vomiting/Diarrhea General Chief complaint: Nausea/Vomiting/Diarrhea Stated complaint: 1st tri cant keep anything down,dehydrated Time Seen by Provider: 04/08/23 10:17 Source: patient Mode of arrival: Ambulatory Limitations: no limitations History of Present Illness HPI Narrative: 27-year-old female presenting with nausea and vomiting has had 4 visits total since the 03 of April. She is approximately 6 weeks and 6 days. Patient states having c continued symptoms. She states she has really had trouble keeping any sort of solids down. She states the Reglan is helping but only lasted about 2 hours. She has not been taking the doxylamine 3 times daily could not makes her feel very jittery. She is continued with the vitamin B6. Patient states no fevers. She denies any chest pain, shortness of breath no other new symptoms. No abdominal pain. No diarrhea constipation issues. No urinary symptoms or vaginal bleeding. She states very similar to her last several visits. Patient has reached out to Ob has not heard back. Former smoker, no alcohol or recreational drugs. Primary care is through the [facility]. Related Data Previous Rx's Medication Instructions Recorded buspirone 15 mg tablet 15 mg PO BID #60 tabs 10/09/21 double electric breast pump 1 ea topical .prn #1 ea 03/21/22 ibuprofen 600 mg tablet 600 mg PO Q6HR PRN Pain, Mild 04/19/22 (1-3) #30 tabs doxylamine 10 mg-pyridoxine (vit 1 tab PO DAILY #30 tabs 04/03/23 B6) 10 mg tablet,delayed release (Diclegis) ondansetron 4 mg disintegrating 4 mg PO Q8H PRN nausea and 04/03/23 tablet vomiting #30 tabs metoclopramide HCl 10 mg tablet 10 mg PO Q6H PRN nausea and 04/04/23 (Reglan) vomiting #20 tabs metoclopramide HCl 10 mg tablet 10 mg PO Q6H PRN nausea and 04/06/23 (Reglan) vomiting #20 tabs prochlorperazine 25 mg rectal [address] BID PRN nausea and 04/08/23 suppository (Compazine) vomiting #12 ea prochlorperazine maleate 10 mg 10 mg PO Q6H PRN nausea and 01/31/24 tablet (Compazine) vomiting #14 tabs Allergies Allergy/AdvReac Type Severity Reaction Status Date / Time latex Allergy Verified 04/08/23 10:02 Review of Systems Review of Systems ROS Unobtainable: All systems reviewed & are unremarkable except as noted in HPI and below Patient History Medical History Depression Anxiety Surgical History H/O dilation and curettage Family History Mother Hypertension Gestational diabetes Father Hypertension Grandfather Colon cancer Social History marital status: number of children: 0 household members: spouse housing: [facility] pets and animals: Yes education level: high school occupational status: previously employed current occupational exposures/hazards: No special trino needs: No seatbelt use: always water heater temp set < 120 deg: No (will adjust) working smoke detector in home: Yes fire extinguisher in home: Yes carbon monox detector in home: Yes firearms in home: Yes firearms unloaded and locked: Yes do you feel safe at home: Yes Smoking Status: Former smoker Tobacco: How many years used: 4 second hand exposure: No substance use type: marijuana (not willing to stop due to appetite, sleep, depression, etc) during the past year weight has: remained stable well-balanced diet: rarely or never daily servings fruits/ve-1 caffeine: No Type(s) of exercise: walking frequency: daily duration: 15-30 minutes/day additional social history: Very inadequate diet. Reports that she eats absolutely no fruits or vegetables, won't even try or drink smoothies. I eat noodles, potatoes, and meat. I'll take a supplement if you tell me one. Counseled pt on diet, but it seems likely this will need a lot of reinforcement. Smoking Status: Former smoker alcohol intake frequency: holidays/special occasions only Substance Use Type: does not use Exam Narrative Exam Narrative: GENERAL: Alert and oriented x three, well-appearing female in mild distress. HEENT: Head normocephalic, atraumatic, EOMI, pupils reactive, face symmetric, moist mucous membranes NECK: Supple, full range of motion CARDIOVASCULAR: Regular rate and rhythm without murmurs, rubs or gallops. RESPIRATORY: Breath sounds equal bilaterally, no wheezes rales or rhonchi. ABDOMEN: Soft, nontender. Nontender in right upper quadrant. Normoactive bowel sounds all 4 quadrants. No guarding or rebound, rigidity, no mass, No active vomiting. : No CVA tenderness EXTREMITIES: Normal range of motion, no clubbing or edema. Neurovascularly intact NEUROLOGICAL: Cranial nerves II through XII grossly intact. Moving all extremities SKIN: Warm, dry, no petechiae, no rashes or lesions. Initial Vital Signs Initial Vital Signs: Vital Signs Temperature 98.1 F 04/08/23 09:58 Pulse Rate 88 04/08/23 09:58 Respiratory Rate 14 04/08/23 09:58 Blood Pressure 157/92 H 04/08/23 09:58 Pulse Oximetry 96 04/08/23 09:58 Oxygen Delivery Method Room Air 04/08/23 09:58 Course Orders Ordered: Discontinued Medications Sodium Chloride (Normal Saline 0.9%) 1,000 mls @ 1,000 mls/hr IV BOLUS ONE Stop: 04/08/23 11:16 Last Infusion: 04/08/23 12:10 Dose: Infused Documented By: Admin: 04/08/23 10:30 Dose: 1,000 mls/hr Documented By: WILLIAM Sodium Chloride (Normal Saline 0.9%) 1,000 mls @ 1,000 mls/hr IV BOLUS ONE Stop: 04/08/23 12:41 Last Infusion: 04/08/23 13:15 Dose: Infused Documented By: Admin: 04/08/23 12:11 Dose: 1,000 mls/hr Documented By: AKI Metoclopramide HCl (Metoclopramide 10 Mg/2 Ml Inj) 10 mg IV NOW ONE Stop: 04/08/23 10:18 Last Admin: 04/08/23 10:30 Dose: 10 mg Documented By: WILLIAM Potassium Chloride (Potassium Chloride 20 Meq Tab) 40 meq PO NOW ONE Stop: 04/08/23 10:41 Last Admin: 04/08/23 11:59 Dose: Not Given Documented By: AKI Vital Signs Vital signs: Vital Signs - 8 hr 04/08/23 09:58 04/08/23 10:00 04/08/23 10:00 Temperature 98.1 F Pulse Rate 88 74 Respiratory Rate 14 16 Blood Pressure 157/92 H 157/92 H Pulse Oximetry 96 96 Oxygen Delivery Method Room Air Room Air 04/08/23 10:30 04/08/23 10:34 04/08/23 10:34 Temperature Pulse Rate 74 82 Respiratory Rate Blood Pressure 126/86 Pulse Oximetry 98 99 Oxygen Delivery Method 04/08/23 11:00 04/08/23 11:30 04/08/23 12:00 Temperature Pulse Rate 72 77 75 Respiratory Rate Blood Pressure Pulse Oximetry 98 99 99 Oxygen Delivery Method MDM - Nausea/Vomiting/Diarrhea Lab Data 04/08/23 10:08 04/08/23 10:08 Labs: Lab Results 04/08/23 04/08/23 Range/Units 10:08 12:09 WBC 8.9 (4.5-11.0) X10^3/uL RBC 4.60 (4.0-5.2) X10^6/uL Hgb 13.8 (12.0-16.0) g/dL Hct 40.3 (36-46) % MCV 87.7 (80-100) fL MCH 30.0 (26-34) PG MCHC 34.2 (30-36) % RDW 12.7 (11.6-14.8) % Plt Count 274 (150-400) X10^3/uL Neut % (Auto) 79.4 H (50-75) % Lymph % (Auto) 12.2 L (25-40) % [place] % (Auto) 7.9 (3-14) % Eos % (Auto) 0.2 L (2-4) % Baso % (Auto) 0.3 (0-2) % Neut # (Auto) 7000 (8533-6282) /uL Lymph # (Auto) 1100 (0939-7834) /uL [place] # (Auto) 700 (0-900) /uL Eos # (Auto) 0 (0-450) /uL Baso # (Auto) 0 (0-100) /uL Sodium 136 L (137-145) mmol/L Potassium 3.3 L (3.4-5.1) mmol/L Chloride 103 (98-107) mmol/L Carbon Dioxide 20 L (22-32) mmol/L BUN 7 (7-17) mg/dL Creatinine 0.57 (0.52-1.04) mg/dL Estimated GFR > 60 (>60) mL/min BUN/Creatinine Ratio 12.3 (6-22) Glucose 102 H (70-100) mg/dL Calcium 9.7 (8.4-10.2) mg/dL Total Bilirubin 1.7 H (0.2-1.3) mg/dL AST 22 (14-36) IU/L ALT 16 (<35) IU/L Alkaline Phosphatase 51 (38-126) U/L Total Protein 8.0 (6.3-8.2) g/dL Albumin 4.6 (3.5-5.0) g/dL Globulin 3.4 (1.7-4.1) g/dL Albumin/Globulin Ratio 1.4 (1.0-2.8) Lipase 104 (23-300) U/L Urine RBC None seen (0-5/HPF) Urine WBC None seen (0-5/HPF) Ur Squamous Epith Cells 1-5 /hpf (0-5/HPF) Urine Bacteria None seen (None) Ur Culture Indicated? Cult not indicated Vol Urine Centrifuged 10ml (spun) Urine Dip Bedside Urine Glucose Negative Bedside Urine Bilirubin - Negative Bedside Urine Ketone +++ 80 Urine Specific [place] 1.030 Bedside Urine Occult Blood - Negative Bedside Urine pH 6.0 Bedside Urine Protein + 30 Bedside Urine Urobilinogen - Negative Bedside Urine Nitrite - Negative Bedside Urine Leukocytes - Negative Esterase MDM Narrative Medical decision making narrative: Labs show normal white count, hemoglobin of 13 platelets of 274. Sodium 136 potassium of 3.3 was 3.7 on the , CO2 is 20 today, chloride 103 with a BUN of 7 and creatinine 0.57. Glucose is 102. Bilirubin is 1.7 has been elevated last several visits did have a right upper quadrant ultrasound that showed sludge but no other changes on the LFTs are otherwise negative. Urine shows ketones, 30+ protein, no signs of infection Patient had fluids and Reglan. She politely declined oral potassium. She has been taking doxylamine +B6, she has [facility] She has been in contact with OBGYN but has been referred to the ER. She has not established care but plans to see Dr. Lane who she has seen in the past. Spoke with OB metal precision machine assembler, Dr. Krueger also spoke with Dr. Lane who is aware of patient. They are planning to reach out to the patient this week to help coordinate for outpatient fluids and treatment for potential hyperemesis. Recommend adding Compazine to current regimen at this time and see how she tolerates. Patient is felt appropriate for discharge home. Discussed with patient she is comfortable with this plan. Discussed Compazine oral versus suppository. She is unsure what she would like to try so we will send a script for both and she can try 1 or the other. Discharge Plan Departure Patient Disposition: Home Clinical Impression: Nausea and vomiting during Instructions: Nausea of (Alternative Therapy) Activity Restrictions/Additional Instructions: Follow up with Dr. Lane, I did speak with the OB office they are planning to reach out to you this week to help set up treatment for potential hyperemesis. Continue with Reglan you can take 1 tablet every 4-6 hours as needed for nausea and vomiting. Continue with vitamin B6 as recommended. If you do not tolerate the doxylamine you can try Compazine instead. You may take 1 tablet orally every 6 hours or 1 tablet every 12 hours by suppository. Prescription was sent to [facility] in [address]. I hope you continue to feel improved. Please return if you are having fevers, lightheadedness or passing out, worsening symptoms, new abdominal back or flank pain or other new or concerning changes. Prescriptions: New prochlorperazine maleate [Compazine] 10 mg tablet 10 mg PO Q6H PRN (Reason: nausea and vomiting) Qty: 14 0RF prochlorperazine [Compazine] 25 mg suppository [address] BID PRN (Reason: nausea and vomiting) Qty: 12 0RF No Action double electric breast pump 1 ea topical .prn Qty: 1 0RF Rx Instructions: With supplies buspirone 15 mg tablet 15 mg PO BID Qty: 60 12RF ibuprofen 600 mg Tablet 600 mg PO Q6HR PRN (Reason: Pain, Mild (1-3)) Qty: 30 2RF metoclopramide HCl [Reglan] 10 mg tablet 10 mg PO Q6H PRN (Reason: nausea and vomiting) Qty: 20 0RF ondansetron 4 mg tablet,disintegrating 4 mg PO Q8H PRN (Reason: nausea and vomiting) Qty: 30 0RF doxylamine-pyridoxine (vit B6) [Diclegis] 10-10 mg tablet,delayed release (DR/EC) 1 tab PO DAILY Qty: 30 0RF metoclopramide HCl [Reglan] 10 mg tablet 10 mg PO Q6H PRN (Reason: nausea and vomiting) Qty: 20 0RF Referrals: ProviderSarah [Primary Care Provider] - Stand Alone Forms: Patient Portal/API
[2023-04-08 12:26] LABS: Bacteria Urine None Seen; Culture Indicated Urine Cult Not Indicated; RBC Urine None Seen (0-5/HPF); Squamous Epithelial Cell Urine 1-5 /HPF (0-5/HPF); Urine Volume 10mL (spun); WBC Urine None Seen (0-5/HPF)
== END 2023-04-08 13:32 | disposition home or self-care (01) ==
PROVIDERS: Emergency Provider Emergency Medicine
DX: O21.9 Vomiting of pregnancy, unspecified (principal); Z3A.01 Less than 8 weeks gestation of pregnancy
CPT/HCPCS: 36415; 80053; 81003; 81015; 83690; 85025; 87086; 87147; 96361; 96374; 99284; J2765

== ENCOUNTER → 2023-05-15 14:30 | Outpatient (CLI) | payer OTHER, SELFPAY ==
[2023-05-15 15:21] LABS: Add Manual Diff / Slide Review NO; Basophils Absolute Auto 0 /uL (0-100); Basophils Percent Auto 0.5 % (0-2); Eosinophils Absolute Auto 100 /uL (0-450); Eosinophils Percent Auto 1.1 % (2-4); Hematocrit 33.7 % (36-46); Hemoglobin 11.8 g/dL (12.0-16.0); Lymphocytes Absolute Auto 1800 /uL (1100-4500); Lymphocytes Percent Auto 26.5 % (25-40); Mean Corpuscular Hemoglobin 31.7 PG (26-34); Mean Corpuscular Volume 90.5 fL (80-100); Monocytes Absolute Auto 500 /uL (0-900); Monocytes Percent Auto 6.9 % (3-14); Neutrophils Absolute Auto 4400 /uL (1500-7000); Platelet Count 232 X10^3/uL (150-400); Red Blood Cell Count 3.72 X10^6/uL (4.0-5.2); Red Cell Distribution Width 13.3 % (11.6-14.8); White Blood Cell Count 6.7 X10^3/uL (4.5-11.0)
[2023-05-15 15:30] LABS: Alanine Aminotransferase 10 IU/L (<35); Aspartate Aminotransferase 16 IU/L (14-36); BUN Creatinine Ratio 13.1 (6-22); Blood Urea Nitrogen 8 mg/dL (7-17); Estimated Glomerular Filt Rate > 60 mL/min (>60)
[2023-05-15 21:09] LABS: Urine N gonorrhoeae NOT DETECTED
[2023-05-15 21:10] LABS: Urine Chlamydia NOT DETECTED
[2023-05-17 10:08] LABS: Varicella IgG Antibody <135 index (Immune >165)
[2023-05-18 16:57] LABS: Hepatitis B Surface Antigen NEGATIVE s/c (NEGATIVE); Rubella Antibody IgG 55.6 IU/mL (>15)
[2023-05-18 17:22] LABS: HIV 1 & 2 Ab/Ag 4th Gen Combo NEGATIVE (NEGATIVE); Hep C Virus Ab w/Reflex Quant NEGATIVE s/c (NEGATIVE)
[2023-05-19 06:59] LABS: RPR Screen Non Reactive (Non Reactive)
== END ==
PROVIDERS: Referring Provider Obstetrics & Gynecology; Visit Provider Obstetrics & Gynecology
DX: Z34.81 Encounter for supervision of other normal pregnancy, first trimester (principal); Z3A.12 12 weeks gestation of pregnancy
CPT/HCPCS: 36415; 80055; 82565; 84450; 84460; 84520; 84550; 86787; 86803; 86850; 86900; 86901; 87389; 87491; 87591

== ENCOUNTER → 2023-06-12 14:32 | Outpatient (CLI) | payer OTHER, SELFPAY ==
[2023-06-15 16:56] LABS: AFP Value 35.3 ng/mL (.); Gest Age on Col Date 15.4 weeks (.); Insulin Dep Diabetes No (.); OSBR Risk 1IN 9231 (.); Results Report (.); Test Results *Screen Negative* (.)
== END ==
PROVIDERS: Referring Provider Obstetrics & Gynecology; Visit Provider Obstetrics & Gynecology
DX: Z34.82 Encounter for supervision of other normal pregnancy, second trimester (principal); Z3A.16 16 weeks gestation of pregnancy
CPT/HCPCS: 36415; 82105

== ENCOUNTER → 2023-07-09 12:33 | Outpatient (CLI) | payer OTHER, SELFPAY ==
--- NOTE | 2023-07-09 | DI.US.S_ITS ---
PROCEDURE: US OB >= 14 WEEKS FETUS INDICATIONS: 20 week anatomy scan OUTSIDE/PRIOR DATING DATA: Last menstrual period (LMP): And. LMP-based estimated date of delivery (CARMENCITA): Unknown. First dating scan (date and location): 04/04/2023. Estimated date of delivery (CARMENCITA) from first dating scan: 11/26/2023. The calculations are made using the ultrasound CARMENCITA of 11/26/2023. TECHNIQUE: Real-time scanning was performed of the fetus, with image documentation and biometric measurements. Endovaginal scanning: Not performed COMPARISON: [facility], OB <= 14 WEEKS FETUS, 04/04/2023, 18:40. [facility], ABDOMEN LIMITED, 04/06/2023, 12:57. [facility], OB >= 14 WEEKS FETUS, 12/10/2021, 12:43. FINDINGS: General: A single living intrauterine gestation is present. Presentation: Vertex. Placenta: Placental position is anterior , without previa. Amniotic fluid index: 11.1 cm, normal range is 5-24 cm. Single deepest vertical pocket is 4.8 cm. heart rate: 155 beats per minute. Maternal cervical canal: 4.2 cm long. Normal lower limit is 2.5 cm. biometrics: Biparietal diameter: 4.7 centimeters, 20 weeks 1 day Head circumference: 17.3 centimeters, 19 weeks 6 days Abdominal circumference: 15.0 centimeters, 20 weeks 1 day Femur length: 3.2 centimeters, 20 weeks 0 days Clinically estimated gestational age: 20 weeks 0 days Composite gestational age from present scan: 20 weeks 0 days Estimated weight and percentile: 331 grams, 52 percentile Anatomic survey: Neuro: Ventricles are non-dilated at less than 10 mm. Cisterna magna is normal at 3-11 mm. Cerebellum is normal in size and morphology. Nuchal skin fold: Normal at less than 6 mm between 14-21 weeks gestational age. Face: Nose and lips, facial profile are normal. Spine: No evidence for spina bifida. Heart: 4-chambered heart is present, with normal ventricular outflow tracts. Diaphragm: Diaphragm is intact. Stomach: Left-sided stomach is present. Kidneys: No hydronephrosis. Normal is less than 5 mm in 2nd trimester, less than 7 mm in 3rd trimester. Cord: 3-vessel cord has orthotopic insertion. Bladder: Normal in size. Extremities: All 4 extremities identified. IMPRESSION: 1. Single live intrauterine consistent with 20 weeks and 0 days. 2. Normal anatomic survey. We strive to produce accurate, complete, and clear reports of imaging services. To assist us in improving patient care, this report was composed using standard report templates and voice recognition software. Therefore, it may contain abnormal punctuation, insertions and/or omissions. Occasional wrong-word or sound-alike substitutions may occur. Though we review the report and make efforts to correct it, we do recommend that the report be read carefully in proper context to recognize any text inaccuracies. Dictated by: Titus Grayson M.D. on 07/09/2023 at 16:03 Approved by: Titus Grayson M.D. on 07/09/2023 at 16:05
== END ==
PROVIDERS: Referring Provider Obstetrics & Gynecology; Visit Provider Obstetrics & Gynecology
DX: Z34.82 Encounter for supervision of other normal pregnancy, second trimester (principal); Z3A.20 20 weeks gestation of pregnancy
CPT/HCPCS: 76811

== ENCOUNTER → 2023-07-10 14:30 | Outpatient (CLI) | payer OTHER, SELFPAY | PROVIDERS: Visit Provider Obstetrics & Gynecology | DX: R82.998 Other abnormal findings in urine (principal); R31.9 Hematuria, unspecified | CPT/HCPCS: 87086 ==

== ENCOUNTER → 2023-08-24 14:56 | Outpatient (CLI) | payer OTHER, SELFPAY ==
[2023-08-24 16:52] LABS: GTT (PREG) 1 Hour PP 50gm Dose 88 mg/dL (76-139)
[2023-08-24 17:35] LABS: Hematocrit 35.4 % (36-46)
== END ==
PROVIDERS: Referring Provider Obstetrics & Gynecology; Visit Provider Obstetrics & Gynecology
DX: Z34.02 Encounter for supervision of normal first pregnancy, second trimester (principal); Z3A.26 26 weeks gestation of pregnancy
CPT/HCPCS: 36415; 82950; 85014; 85018

== ENCOUNTER → 2023-09-09 11:29 | Outpatient (CLI) | payer OTHER, SELFPAY | PROVIDERS: Visit Provider Obstetrics & Gynecology | DX: Z34.83 Encounter for supervision of other normal pregnancy, third trimester (principal); R80.9 Proteinuria, unspecified | CPT/HCPCS: 87086 ==

== ENCOUNTER → 2023-10-07 15:27 | Outpatient (CLI) | payer OTHER, SELFPAY | PROVIDERS: Visit Provider Obstetrics & Gynecology | DX: N89.8 Other specified noninflammatory disorders of vagina (principal) | CPT/HCPCS: 87491; 87563; 87591 ==

== ENCOUNTER → 2023-10-08 08:36 | Outpatient (CLI) | payer OTHER, SELFPAY ==
[2023-10-09 14:43] LABS: Candida species Negative (Negative); Gardnerella vaginalis Positive (Negative); Trichomoas vaginalis Negative (Negative)
== END ==
PROVIDERS: Referring Provider Obstetrics & Gynecology; Visit Provider Obstetrics & Gynecology
DX: N89.8 Other specified noninflammatory disorders of vagina (principal)
CPT/HCPCS: 87480; 87510; 87660

== ENCOUNTER → 2023-11-04 13:57 | Outpatient (CLI) | payer OTHER, SELFPAY ==
[2023-11-05 13:50] LABS: Strep Grp B PCR POS for Grp B Strep
== END ==
PROVIDERS: Visit Provider Obstetrics & Gynecology
DX: Z34.83 Encounter for supervision of other normal pregnancy, third trimester (principal); Z3A.36 36 weeks gestation of pregnancy
CPT/HCPCS: 87653

== ENCOUNTER 2023-11-16 12:15 | Inpatient (IN) | payer OTHER, SELFPAY ==
--- NOTE | 2023-11-16 12:57 | PM.AN.REGBLK ---
Regional Block Pre-procedure Allergies: Allergies Allergy/AdvReac Type Severity Reaction Status Date / Time latex Allergy Verified 11/10/23 14:28
--- NOTE | 2023-11-16 14:00 | P.HPOB_ITS ---
OB HPI Date/Time Date of admission: 11/16/23 Date Patient Seen: 11/16/23 Time Patient Seen: 12:30 History of Present Condition Chief complaint: LABOR CARMENCITA Calculator Estimated Delivery Date Method Current WG Current Estimate 11/26/23 Ultrasound #1 38w 4d Other Estimates 12/01/23 LMP (Uncertain) 37w 6d : 3 Para: 1 Narrative: Patient presented in active labor and progressed rapidly. complicated by GBS. No epidural. IV placed but no antibotics in. care: good care Dating criteria OB: LMP confirmed by 1st trimester US Ultrasounds: normal 1st trimester US and normal mid trimester US Obstetrical complications: none Medical complications OB: none Preadmission Labs Last OB Lab Results: Blood Type A Positive 05/15/23 14:36 Antibody Screen Negative 05/15/23 14:36 Hct 39.0 % (36-46) 11/16/23 12:50 Hgb 13.2 g/dL (12.0-16.0) 11/16/23 12:50 Hep Bs Antigen Negative s/c (NEGATIVE) 05/15/23 14:36 Hepatitis C Antibody Negative s/c (NEGATIVE) 05/15/23 14:36 Rubella Antibody 55.6 IU/mL (>15) 05/15/23 14:36 VZV IgG Antibody <135 index (Immune >165) L 05/15/23 14:36 Glucose 1 Hr 50 gm 88 mg/dL (76-139) 08/24/23 16:11 Group B Strep (PCR) Pos for grp b strep H 11/04/23 13:57 Genetic Screens: Cell-free DNA: Normal Prior (ies) Past Pregnancies Del. 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 @ 10:[address] MD) Slipped rib syndrome Depression Anxiety Surgical History (Updated 05/05/23 @ 15:34 by Toña Mascorro RN) H/O dilation and curettage (~2019) Family History Mother Hypertension Gestational diabetes Father Hypertension Grandfather Colon cancer Social History marital status: number of children: 1 household members: spouse and children lives independently: Yes caregiver/support person: Yes housing: condominium ([facility]) pets and animals: Yes (dog) education level: high school occupational status: previously employed current occupational exposures/hazards: No special trino needs: No travel history: over 6 months ago seatbelt use: always water heater temp set < 120 deg: Yes working smoke detector in home: Yes fire extinguisher in home: Yes carbon monox detector in home: Yes firearms in home: No do you feel safe at home: Yes Smoking Status: Former smoker (quit at beginning of 1st ) Tobacco: How many years used: 4 second hand exposure: No substance use type: marijuana (in the past, will not use while /) during the past year weight has: remained stable well-balanced diet: rarely or never daily servings fruits/ve-1 caffeine: No (stopped with ) Type(s) of exercise: walking frequency: daily duration: 15-30 minutes/day additional social history: Very inadequate diet. Reports that she eats absolutely no fruits or vegetables, won't even try or drink smoothies. I eat noodles, potatoes, and meat. I'll take a supplement if you tell me one. Couns eled pt on diet, but it seems likely this will need a lot of reinforcement. Meds Home Medications and Allergies Home Medications Medication Instructions Recorded Confirmed Type vitamin-ferrous sulfate tab PO 05/05/23 11/10/23 History 27 mg iron-folic acid 0.8 mg tablet metronidazole 1.3 % (65 mg/5 gram) 1 appful vaginal BEDTIME 1 dose #5 10/10/23 11/10/23 Rx vaginal gel grams Allergies Allergy/AdvReac Type Severity Reaction Status Date / Time latex Allergy Verified 11/10/23 14:28 Review of Systems Review of Systems ROS: Yes All systems reviewed with the patient and are negative except as otherwise documented Assessment and Plan Assessment and Plan Assessment and Plan narrative: Admitted for labor. Delivered before able to do formal H&P. See delivery note.. Time-Based Coding :: 45 minutes spent with patient and on the chart (including review of chart, obtaining history, exam, reviewing outside data, placing orders, documenting exam and treatment plan, and counseling patient) on [DATE].
[2023-11-16 14:05] LABS: Add Manual Diff / Slide Review NO; Basophils Absolute Auto 100 /uL (0-100); Basophils Percent Auto 0.7 % (0-2); Eosinophils Absolute Auto 100 /uL (0-450); Eosinophils Percent Auto 0.6 % (2-4); Hemoglobin 13.2 g/dL (12.0-16.0); Lymphocytes Absolute Auto 1700 /uL (1100-4500); Lymphocytes Percent Auto 16.7 % (25-40); Mean Corpuscular HGB Conc 33.8 % (30-36); Mean Corpuscular Hemoglobin 31.9 PG (26-34); Mean Corpuscular Volume 94.3 fL (80-100); Monocytes Absolute Auto 500 /uL (0-900); Monocytes Percent Auto 4.4 % (3-14); Neutrophils Absolute Auto 8100 /uL (1500-7000); Neutrophils Percent Auto 77.6 % (50-75); Platelet Count 247 X10^3/uL (150-400); Red Blood Cell Count 4.14 X10^6/uL (4.0-5.2); Red Cell Distribution Width 12.7 % (11.6-14.8); White Blood Cell Count 10.5 X10^3/uL (4.5-11.0)
[2023-11-16 14:09] LABS: Alanine Aminotransferase 19 IU/L (<35); Albumin 3.8 g/dL (3.5-5.0); Albumin Globulin Ratio 1.2 (1.0-2.8); Alkaline Phosphatase 174 U/L (38-126); Aspartate Aminotransferase 36 IU/L (14-36); BUN Creatinine Ratio 22.1 (6-22); Bilirubin Total 0.6 mg/dL (0.2-1.3); Blood Urea Nitrogen 15 mg/dL (7-17); Calcium 9.4 mg/dL (8.4-10.2); Carbon Dioxide 16 mmol/L (22-32); Chloride 109 mmol/L (98-107); Estimated Glomerular Filt Rate > 60 mL/min (>60); Globulin 3.3 g/dL (1.7-4.1); Glucose 107 mg/dL (70-100); HEMOLYSIS < 15 (0-50); Potassium 4.1 mmol/L (3.4-5.1); Sodium 135 mmol/L (137-145); Total Protein 7.1 g/dL (6.3-8.2)
--- NOTE | 2023-11-16 14:19 | PM.OBPRVD ---
Labor & Delivery Delivery date: 11/16/23 Delivery monitor: external FHT Route of delivery: L&D Laceration Description: Perineal - 2nd Degree and Labial Delivery repair: vicryl Estimated blood loss (mL): 350 Anesthesia Type: None Narrative: Patient progressed from 5 to complete within 20 minutes of arrival to hospital. Presented to room, patient was . Over two contractions, she delivered a vigorous male over an intact perineum. Delayed cord clamping for approximately 5 minutes. Placenta delivered with external fundal massage and gentle cord traction. There was a second degree perineal repaired with suture. There was a left labial repair also repaired with suture. Routine pitocin was given. Baby 1: gender: Male Presentation: vertex Placenta delivery description: Spontaneous Cord Vessel Description: 3 Vessels score (1 min): 9 score (5 min): 9 Plan for aftercare: Routine care
[2023-11-16] MEDS: WITCH HAZEL/GLYCERIN PADS 1 EACH TOP (14:53)
[2023-11-16] MEDS: DERMOPLAST SPRAY 20% 60 ML 1 SPRAY TOP (14:53)
[2023-11-16] MEDS: IBUPROFEN 600 MG TABLET PO ×2 (14:54→21:58)
[2023-11-16] MEDS: ACETAMINOPHEN 325 MG TABLET 650 MG PO ×2 (14:54→22:26)
[2023-11-16] MEDS: LIDOCAINE 2% INJ MDV 20ML 20 ML INJ (15:35)
[2023-11-16 21:46] LABS: Creatinine Urine Random 210.61 mg/dL; Protein (Total) Urine Random 21 mg/dL (0-12); Protein Creatinine Ratio Urine 0.09 GRAM/24H
[2023-11-17] MEDS: IBUPROFEN 600 MG TABLET PO ×2 (04:56→12:20)
[2023-11-17] MEDS: ACETAMINOPHEN 325 MG TABLET 650 MG PO ×2 (04:57→12:20)
--- NOTE | 2023-11-17 12:40 | P.DS_ITS ---
Discharge Providers Provider Date of admission: 11/16/23 12:15 Discharge Date: 11/17/23 Primary care physician: Sarah WALTERS Provider Consults: 11/16/23 13:20 Consult to Anesthesiology Urgent Comment: Consulting Provider: Anesthesiologist Reason for consultation: Epidural 11/17/23 13:51 Consult to Senior Climate Advisor Routine Comment: Discharge provider: Sabi Torre MD Summary Hospital Course Date Patient Seen: 11/17/23 Time Patient Seen: 07:30 Diagnoses: Gestational Hypertension/Pre-Eclampsia; Term Vaginal Delivery; GBS positive without adequate antibiotics Hospital Course: Patient presented in active labor and quickly progressed to complete. SROM with clear fluid. Delivery 8 minutes after SROM. GBS positive without adequate antibiotics. Blood pressures elevated to 150s/90s initially. Hx of pre-eclampsia in prior . Blood pressures down to 130s/90s 24 hours post delivery. Labs without signs of pre-eclampsia. P/C ratio obtained by nursing, however patient bleeding so unable to access. Denies headaches, vision changes, or SOB. Pain well controlled. Exclusive formula feeding. Patient to follow up in 1 week for elevated blood pressures/possible pre-eclampsia. Return precautions given. Peripartum Data Infant Delivery Method: Natural Vaginal Laceration Description: Perineal - 2nd Degree and Labial complications: none Status at Discharge Cognitive/behavioral status at discharge: oriented Functional status at discharge: independent ambulation Overall status at discharge: patient is back to baseline Time Spent with Patient Time attestation: Total time spent providing and/or coordinating discharge services: Time spent: Greater than 30 minutes Objective Labs 11/16/23 12:50 11/16/23 12:50 Labs: Laboratory Results - last 24 hr 11/16/23 11/16/23 12:50 21:00 WBC 10.5 RBC 4.14 Hgb 13.2 Hct 39.0 MCV 94.3 MCH 31.9 MCHC 33.8 RDW 12.7 Plt Count 247 Neut % (Auto) 77.6 H Lymph % (Auto) 16.7 L [place] % (Auto) 4.4 Eos % (Auto) 0.6 L Baso % (Auto) 0.7 Neut # (Auto) 8100 H Lymph # (Auto) 1700 [place] # (Auto) 500 Eos # (Auto) 100 Baso # (Auto) 100 Sodium 135 L Potassium 4.1 Chloride 109 H Carbon Dioxide 16 L BUN 15 Creatinine 0.68 Estimated GFR > 60 BUN/Creatinine Ratio 22.1 H Glucose 107 H Calcium 9.4 Total Bilirubin 0.6 AST 36 ALT 19 Alkaline Phosphatase 174 H Total Protein 7.1 Albumin 3.8 Globulin 3.3 Albumin/Globulin Ratio 1.2 U Random Total Protein 21 H Urine Creatinine 210.61 Protein/Creatinin Ratio 0.09 Blood Type A Positive Antibody Screen Negative Exam Narrative Exam Narrative: Recovering well in bed. Fundus firm at umbilicus. Discharge Plan Discharge Plan Patient Disposition: Home Discharge orders & Medications Prescriptions: Continued metronidazole 1.3 % (65 mg/5 gram) gel 1 appful vaginal BEDTIME Qty: 5 1RF vit-ferrous sulfat-FA 27 mg iron- 0.8 mg tablet See Rx Instructions .ROUTE .COMPLEX Rx Instructions: Take as directed Follow up/Referrals: ProviderSarah [Primary Care Provider] - Gorge Lane MD [Physician] - 1 Week (Please follow up with Dr. Lane for a one week blood pressure check on November 23 @ 1000. Please follow up with Dr. Lane on January 04 @ 1000 for a 6 week check up. ) Visit Report/Discharge Packet Instructions: Depression, Hemorrhage Stand Alone Forms: Discharge: Care, Patient Portal/API, Stroke Signs & Symptoms Discharge Data Primary Care Provider: Sarah Sousa Discharges patient from system. Discharge Date/Time: 11/17/23 17:41
--- NOTE | 2023-11-17 13:17 | PATH_ITS ---
[facility] Accession Number: [id number] No. of containers..01 Tissue . 01 Material submitted: . placenta - PLACENTA . 01 Diagnosis: PLACENTA, DELIVERY: Mature simmons placenta, weight 277 grams (less than 5th percentile for 38 weeks and 4 days gestational age). Focal, mild acute chorioamnionitis. Three vessel umbilical cord without evidence of funisitis; focal hemorrhage, most consistent with procedural hemorrhage. Negative for villitis. Small infarcts involving less than 10% of the placenta, and few scattered calcifications also present. Negative for malignancy. MRV 11/24/2023 1651 Local . 01 Comment: Selected slides (A1, A2, and A3) are also reviewed by Dr. Sandra Wilkins, who agrees with the interpretation. . 01 Electronically signed: . Eloisa Castrejon MD, Pathologist NPI- [id number] . 01 Gross description: . Received in formalin with two patient identifiers and placenta, is a discoid simmons placenta (277 grams, 13.7 x 13.5 x 2.0 cm) with no accessory lobes identified. . The membranes are verma and translucent with small areas of verma thickening identified occupying less than 10% of the membrane surface. Adherent hemorrhage is also identified occupying approximately 10% of the membrane surface. The membranes insert at the margin, have a point of rupture 4.9 cm from the nearest placental disc edge. . The attached segment of cord is 2.5 x 1.0 cm with a leftward coil and an index of approximately one twist per 5 cm. The cord inserts eccentrically 3.5 cm from the nearest disc edge. The detached segment of cord is 37.7 x 1.2 cm. Sectioning reveals trivascular architecture with a dilated vascular lumen near the placental end of the cord. Within the dilated lumen is a small amount of blood and yellow-green mucoid material. No knots or lesions are identified. . The surface is blue-reeder with normal arborizing vasculature and no discoloration or lesion identified. . The maternal surface is apparently complete with no lesions identified. The cut surface is red and spongy with multiple small verma areas of discoloration located peripherally and averaging approximately 0.5 cm in greatest dimension occupying less than 10% of the cut surface. No additional lesions are identified. Heat [employer] sections are submitted as follows: . A1: Membrane roll and placental end of cord with dilated lumen. A2: Membrane roll and detached segment of cord. A3-A4: Full thickness section with cut surface lesions. A5-A7: Central full thickness unremarkable sections. ([id number]) /MRV 11/24/2023 1651 Local . 01 Pathologist provided ICD-10: O41.1290 . 01 CPT . 657027 Specimen Comment: A courtesy copy of this report has been sent to [facility] Pathology Performed at: [address] [address], [place], [place] [id number] MD Daniel Wiseman MD Phone: [phone]
== END 2023-11-17 17:41 | disposition home or self-care (01) | DRG 807 ==
PROVIDERS: Student in an Organized Health Care Education/Training Program; Admitting Provider Obstetrics & Gynecology; Referring Provider Obstetrics & Gynecology; Visit Provider Obstetrics & Gynecology
DX: O99.824 Streptococcus B carrier state complicating childbirth (principal); Z37.0 Single live birth; Z3A.38 38 weeks gestation of pregnancy; O70.1 Second degree perineal laceration during delivery; O70.0 First degree perineal laceration during delivery
CPT/HCPCS: 59050; 59400; 59409; 80053; 82570; 84156; 85025; 86850; 86900; 86901; G0379